=== PATIENT | male | born 1950 | race Caucasian/White ===

== ENCOUNTER 2024-04-15 16:22 | Inpatient (IN) | payer MEDICARE ==
--- NOTE | 2024-04-15 17:16 | ED ---
General Adult HPI - General Chief complaint: Dizziness Stated complaint: Near Syncope Time Seen by Provider: 04/15/24 16:37 Source: patient, EMS, RN notes reviewed Mode of arrival: EMS Limitations: no limitations - History of Present Illness Initial comments: Patient is a 73-year-old male presenting to the emergency department with concerns with dizziness. Patient was riding his bike for around a half an hour. Patient suddenly felt lightheaded and dizzy. Patient did have palpitations. Patient got off his bike. Patient did not fall. No injury. Patient feels better at this time and has no complaints. No chest pain. No dyspnea. - Related Data Home Medications Medication Instructions Recorded Confirmed Citalopram Hydrobromide [CeleXA] 20 mg PO DAILY 04/15/24 04/15/24 Rosuvastatin [Crestor] 20 mg PO DAILY 04/15/24 04/15/24 Tamsulosin [Flomax] 0.8 mg PO DAILY 04/15/24 04/15/24 amLODIPine [Norvasc] 5 mg PO DAILY 04/15/24 04/15/24 lisinopriL [Zestril] 20 mg PO DAILY 04/15/24 04/15/24 Allergies Allergy/AdvReac Type Severity Reaction Status Date / Time No Known Allergies Allergy Verified 04/15/24 19:05 Review of Systems ROS Statement: Those systems with pertinent positive or pertinent negative responses have been documented in the HPI. ROS Other: All systems not noted in ROS Statement are negative. Constitutional: Denies: fever Eyes: Denies: eye pain ENT: Denies: ear pain Respiratory: Denies: cough, dyspnea Cardiovascular: Reports: as per HPI, palpitations. Denies: chest pain Endocrine: Denies: fatigue Gastrointestinal: Denies: abdominal pain Musculoskeletal: Denies: back pain Neurological: Denies: headache, weakness Past Medical History Past Medical History: Hypertension Additional Past Medical History / Comment(s): high cholesterol History of Any Multi-Drug Resistant Organisms: None Reported Past Surgical History: Appendectomy Past Psychological History: No Psychological Hx Reported Smoking Status: Never smoker Past Alcohol Use History: None Reported Past Drug Use History: None Reported General Exam Limitations: no limitations General appearance: alert, in no apparent distress Head exam: Present: normocephalic Eye exam: Present: normal appearance, PERRL, EOMI. Absent: nystagmus ENT exam: Present: normal oropharynx Neck exam: Present: normal inspection Respiratory exam: Present: normal lung sounds bilaterally Cardiovascular Exam: Present: tachycardia Expanded Peripheral pulses: 2+: Radial (R), Radial (L) GI/Abdominal exam: Present: soft. Absent: tenderness Extremities exam: Present: normal inspection. Absent: pedal edema, calf tenderness Neurological exam: Present: alert, oriented X3, CN II-XII intact. Absent: motor sensory deficit Expanded Neurological exam: Present: protecting the airway Patient oriented to: Present: person, place, time Cranial nerves: EOM's Intact: Normal Sensory exam: Upper Extremity Light Touch: Normal, Lower Extremity Light Touch: Normal Motor strength exam: RUE: 5, LUE: 5, RLE: 5, LLE: 5 Eye Response: (4) open spontaneously Motor Response: (6) obeys commands Verbal Response: (5) oriented Psychiatric exam: Present: normal affect, normal mood Skin exam: Present: normal color Course Vital Signs 04/15/24 04/15/24 04/15/24 16:40 17:16 18:30 Temperature 98.1 F Pulse Rate 133 H 123 H Pulse Rate [ 115 H Health Management Consultant ] Respiratory 20 18 Rate Blood Pressure 102/67 115/89 O2 Sat by Pulse 94 L 96 Oximetry EKG Findings - EKG Results: EKG: interpreted by ERMD (Left axis. Narrow complex tachycardia. Poor R wave progression.), sinus rhythm, normal ST/T EKG shows: tachycardia Medical Decision Making - Medical Decision Making EKG #2 also interpreted by myself shows narrow complex tachycardia with a rate of 122. Left axis. Poor R wave progression. No acute ST change. Was pt. sent in by a medical professional or institution (, PA, BRIM GREASER OPERATOR, urgent care, hospital, or half-way...) When possible be specific @ -No Did you speak to anyone other than the patient for history (EMS, parent, family, police, friend...)? What history was obtained from this source @ -No Did you review nursing and triage notes (agree or disagree)? Why? @ -I reviewed and agree with nursing and triage notes Were old charts reviewed (outside hosp., previous admission, EMS record, old EK G, old radiological studies, urgent care reports/EKG's, half-way records)? Report findings @ -Prior labs not available Differential Diagnosis (chest pain, altered mental status, abdominal pain women, abdominal pain men, vaginal bleeding, weakness, fever, dyspnea, syncope, headache, dizziness, GI bleed, back pain, seizure, CVA, palpatations, mental health, musculoskeletal)? @ -[facility] differential differential Dizziness: Benign paroxysmal positional Vertigo, Meniere's disease, otitis media, acoustic neuroma, vertebrobasilar insufficiency, cerebellar stroke, encephalitis, hypovolemic, arrhythmia, coronary artery syndrome, anemia, this is not meant to be an all-inclusive list EKG interpreted by me (3pts min.). @ -As above X-rays interpreted by me (1pt min.). @ -Chest x-ray does not reveal acute abnormality CT interpreted by me (1pt min.). @ -No evidence of pulmonary embolism. There is concern for esophageal changes as well as infrarenal abdominal aortic aneurysm with thrombus U/S interpreted by me (1pt. min.). @ -None done What testing was considered but not performed or refused? (CT, X-rays, U/S, labs)? Why? @ -Scan of the abdomen however patient already received intravenous contrast What meds were considered but not given or refused? Why? @ -None Did you discuss the management of the patient with other professionals (professionals i.e. , PA, BRIM GREASER OPERATOR, lab, RT, psych nurse, health social work professor, admiralty lawyer, teacher, intelligence officer basic, case making machine operator)? Give summary @ -Case discussed with Dr. Yarbrough who will admit his patient. Case also discussed with Dr. Woods who will consult with vascular. Was smoking cessation discussed for >3mins.? @ -No Was critical care preformed (if so, how long)? @ -No Were there social determinants of health that impacted care today? How? (Homelessness, low income, unemployed, alcoholism, drug addiction, transportation, low edu. Level, literacy, decrease access to med. care, senior living, rehab)? @ -No Was there de-escalation of care discussed even if they declined (Discuss DNR or withdrawal of care, Hospice)? DNR status @ -No What co-morbidities impacted this encounter? (DM, HTN, Smoking, COPD, CAD, Cancer, CVA, ARF, Chemo, Hep., AIDS, mental health diagnosis, sleep apnea, morbid obesity)? @ -None Was patient admitted / discharged? Hospital course, mention meds given and route, prescriptions, significant lab abnormalities, going to OR and other pertinent info. @ -Patient presents with dizziness and tachycardia. CT scan ordered. Patient did develop nausea and emesis in the emergency department, treated with medication. Patient reevaluated and updated. Patient will be admitted with consults, admission orders written. Pedal pulses 2/4 bilateral Undiagnosed new problem with uncertain prognosis? @ -No Drug Therapy requiring intensive monitoring for toxicity (Heparin, Nitro, Insulin, Cardizem)? @ -No Were any procedures done? @ -No Diagnosis/symptom? @ -Dizziness, tachycardia, esophagitis, abdominal aortic aneurysm Acute, or Chronic, or Acute on Chronic? @ -Acute, acute acute, acute Uncomplicated (without systemic symptoms) or Complicated (systemic symptoms)? @ -Default Side effects of treatment? @ -No Exacerbation, Progression, or Severe Exacerbation? @ -No Poses a threat to life or bodily function? How? (Chest pain, [place], [place], pneumonia, PE, COPD, DKA, ARF, appy, cholecystitis, CVA, Diverticulitis, Homicidal, Nola cidal, threat to staff... and all critical care pts) @ -No - Lab Data Result diagrams: 04/15/24 17:13 04/15/24 18:00 Lab Results 04/15/24 04/15/24 04/15/24 Range/Units 17:13 17:13 17:19 WBC 7.4 (3.8-10.6) k/uL RBC 4.75 (4.30-5.90) m/uL Hgb 14.3 (13.0-17.5) gm/dL Hct 43.5 (39.0-53.0) % MCV 91.4 (80.0-100.0) fL MCH 30.1 (25.0-35.0) pg MCHC 32.9 (31.0-37.0) g/dL RDW 13.7 (11.5-15.5) % Plt Count 247 (150-450) k/uL MPV 8.9 Neutrophils % 72 % Lymphocytes % 16 % Monocytes % 7 % Eosinophils % 2 % Basophils % 1 % Neutrophils # 5.3 (1.3-7.7) k/uL Lymphocytes # 1.2 (1.0-4.8) k/uL Monocytes # 0.5 (0-1.0) k/uL Eosinophils # 0.2 (0-0.7) k/uL Basophils # 0.1 (0-0.2) k/uL PT (10.0-12.5) sec INR (<1.2) APTT (22.0-30.0) sec D-Dimer (<0.60) mg/L FEU Sodium 134 L (137-145) mmol/L Potassium (3.5-5.1) mmol/L Chloride (98-107) mmol/L Carbon Dioxide (22-30) mmol/L Anion Gap mmol/L BUN (9-20) mg/dL Creatinine (0.66-1.25) mg/dL Est GFR (CKD-EPI)AfAm (>60 ml/min/1.73 sqM) Est GFR (CKD-EPI)NonAf (>60 ml/min/1.73 sqM) Glucose (74-99) mg/dL POC Glucose (mg/dL) 124 H (70-110) mg/dL POC Glu Resident Care Provider ID Vagts, Suzin Calcium (8.4-10.2) mg/dL Magnesium (1.6-2.3) mg/dL Total Bilirubin (0.2-1.3) mg/dL AST (17-59) U/L ALT (4-49) U/L Alkaline Phosphatase (38-126) U/L Troponin I (0.000-0.034) ng/mL Total Protein (6.3-8.2) g/dL Albumin (3.5-5.0) g/dL TSH 3.360 (0.465-4.680) mIU/L Free T4 0.89 (0.78-2.19) ng/dL 04/15/24 04/15/24 04/15/24 Range/Units 18:00 18:00 18:30 WBC (3.8-10.6) k/uL RBC (4.30-5.90) m/uL Hgb (13.0-17.5) gm/dL Hct (39.0-53.0) % MCV (80.0-100.0) fL MCH (25.0-35.0) pg MCHC (31.0-37.0) g/dL RDW (11.5-15.5) % Plt Count (150-450) k/uL MPV Neutrophils % % Lymphocytes % % Monocytes % % Eosinophils % % Basophils % % Neutrophils # (1.3-7.7) k/uL Lymphocytes # (1.0-4.8) k/uL Monocytes # (0-1.0) k/uL Eosinophils # (0-0.7) k/uL Basophils # (0-0.2) k/uL PT 10.4 (10.0-12.5) sec INR 0.9 (<1.2) APTT 22.0 (22.0-30.0) sec D-Dimer 3.68 H (<0.60) mg/L FEU Sodium 140 (137-145) mmol/L Potassium 4.7 (3.5-5.1) mmol/L Chloride 107 (98-107) mmol/L Carbon Dioxide 24 (22-30) mmol/L Anion Gap 9 mmol/L BUN 29 H (9-20) mg/dL Creatinine 1.41 H (0.66-1.25) mg/dL Est GFR (CKD-EPI)AfAm 57 (>60 ml/min/1.73 sqM) Est GFR (CKD-EPI)NonAf 50 (>60 ml/min/1.73 sqM) Glucose 113 H (74-99) mg/dL POC Glucose (mg/dL) (70-110) mg/dL POC Glu Resident Care Provider ID Calcium 10.0 (8.4-10.2) mg/dL Magnesium 2.0 (1.6-2.3) mg/dL Total Bilirubin 0.8 (0.2-1.3) mg/dL AST 30 (17-59) U/L ALT 44 (4-49) U/L Alkaline Phosphatase 89 (38-126) U/L Troponin I <0.012 (0.000-0.034) ng/mL Total Protein 7.3 (6.3-8.2) g/dL Albumin 4.4 (3.5-5.0) g/dL TSH 2.600 (0.465-4.680) mIU/L Free T4 0.99 (0.78-2.19) ng/dL Disposition Clinical Impression: Dizziness, Tachycardia, Esophagitis, Abdominal aortic aneurysm Disposition: ADMITTED IP TO THIS HOSP Is patient prescribed a controlled substance at d/c from ED?: No Referrals: Clay Yarbrough MD [Primary Care Provider] - 1-2 days Time of Disposition: 20:26
[2024-04-15 17:20] LABS: Glucose,Whole Blood 124 mg/dL (70-110)
[2024-04-15 17:29] LABS: Basophils # (A) 0.1 k/uL (0-0.2); Basophils % (A) 1 %; Eosinophils # (A) 0.2 k/uL (0-0.7); Eosinophils % (A) 2 %; HCT 43.5 % (39.0-53.0); HGB 14.3 gm/dL (13.0-17.5); Lymphocytes # (A) 1.2 k/uL (1.0-4.8); Lymphocytes % (A) 16 %; MCH 30.1 pg (25.0-35.0); MCHC 32.9 g/dL (31.0-37.0); MCV 91.4 fL (80.0-100.0); Mean Platelet Volume 8.9; Monocytes # (A) 0.5 k/uL (0-1.0); Monocytes % (A) 7 %; Neutrophils # (A) 5.3 k/uL (1.3-7.7); Neutrophils % (A) 72 %; Platelet Count 247 k/uL (150-450); RBC 4.75 m/uL (4.30-5.90); RDW 13.7 % (11.5-15.5); WBC 7.4 k/uL (3.8-10.6)
[2024-04-15 17:44] LABS: Sodium 134 mmol/L (137-145)
[2024-04-15 18:02] LABS: T4, Free (Free Thyroxine) 0.89 ng/dL (0.78-2.19)
--- NOTE | 2024-04-15 18:40 | XR ---
EXAMINATION TYPE: XR chest 2V DATE OF EXAM: 04/15/2024 COMPARISON: None INDICATION: Dysrhythmia nausea and dizziness TECHNIQUE: Frontal and lateral views of the chest are obtained. FINDINGS: The heart size is normal. The pulmonary vasculature is normal. The lungs are clear. There is mild hyperinflation. This could be related to inspiratory effort or CO PD. IMPRESSION: 1. No acute pulmonary process. 2. Hyperinflation which can be related to inspiratory effort or COPD.
[2024-04-15 18:48] LABS: Sodium 140 mmol/L (137-145)
[2024-04-15 18:49] LABS: ALT 44 U/L (4-49); AST 30 U/L (17-59); African American GFR (CKD) 57 (>60 ml/min/1.73 sqM); Albumin 4.4 g/dL (3.5-5.0); Alkaline Phosphatase 89 U/L (38-126); Anion Gap 9 mmol/L; Blood Urea Nitrogen 29 mg/dL (9-20); Carbon Dioxide 24 mmol/L (22-30); Chloride 107 mmol/L (98-107); Glucose 113 mg/dL (74-99); Non-African American GFR(CKD) 50 (>60 ml/min/1.73 sqM); Potassium 4.7 mmol/L (3.5-5.1); Total Bilirubin 0.8 mg/dL (0.2-1.3); Total Protein 7.3 g/dL (6.3-8.2)
[2024-04-15 18:57] LABS: INR 0.9 (<1.2); Prothrombin Time 10.4 sec (10.0-12.5)
[2024-04-15 19:06] LABS: T4, Free (Free Thyroxine) 0.99 ng/dL (0.78-2.19)
[2024-04-15] MEDS: ONDANSETRON 4 MG/2 ML VIAL IVP STA (19:19)
--- NOTE | 2024-04-15 20:04 | CT ---
EXAMINATION TYPE: CT angio chest CT DLP: 452.3 mGycm, Automated exposure control for dose reduction was used. DATE OF EXAM: 04/15/2024 7:45 PM COMPARISON: Chest radiograph from same day. CLINICAL INDICATION: Male, 73 years old with history of pe protocol; chest pain, syncope TECHNIQUE/CONTRAST: CTA scan of the thorax is performed with IV Contrast, patient injected with 80cc mL of Isovue 370, ME P images are created and reviewed these are created on a separate workstation.. FINDINGS: Pulmonary Artery: There is no evidence for a filling defect within the pulmonary vasculature to sugge st acute pulmonary embolism. The pulmonary artery is of normal size. Lungs/Pleura: No evidence of focal consolidation, pleural effusion or pneumothorax. Airway: Large airways are patent. Heart: Heart is within normal limits for size. Vasculature: No evidence of aortic aneurysm. Mediastinum: No gross evidence of adenopathy. Moderate right hernia there is circumferential thickeni ng of the esophagus with multiple lymph nodes identified.r example includes series 411 image 42 measu ring 10 mm and image 99 measuring 12 12 mm. Musculoskeletal: No acute osseous abnormalities Soft Tissues/lymph nodes: Subcentimeter left thyroid nodule.e Lower neck: No significant findings. Upper Abdomen: Bilateral renal cysts. Nonobstructing right renal calculi measuring up to 5 mm. Infrarenal abdominal aortic aneurysm with mural thrombus measuring 5.8 cm. This is partially visualiz ed: Left adrenal nodule which is indeterminate measuring 20 mm. Right adrenal nodule which is indetermina te measuring 11 mm. IMPRESSION: 1. No evidence of pulmonary embolism. 2. Moderate hiatal hernia with mild wall thickening of the esophagus. Multiple paraesophageal lymph n odes are present. Correlate for esophagitis. Underlying neoplastic process not excluded. Further work up recommended. 3. Partially visualized abdominal aortic aneurysm with mural thrombus measuring up to 5.8 cm. Further evaluation of the abdomen with angiography recommended along with vasculature surgery consultation. 4. Indeterminate bilateral adrenal nodules.
[2024-04-15] MEDS ORDERED: NALOXONE 0.4 MG/ML 1 ML VIAL IV PRN (20:26)
[2024-04-15] MEDS ORDERED: ONDANSETRON 4 MG/2 ML VIAL IVP PRN (20:26)
--- NOTE | 2024-04-15 21:39 | US ---
EXAMINATION TYPE: US duplex aorta DATE OF EXAM: 04/15/2024 COMPARISON: CT today CLINICAL INDICATION: Male, 73 years old with history of aaa; AAA seen on CT TECHNIQUE: Multiple sonographic images of the abdominal aorta are obtained. FINDINGS: EXAM MEASUREMENTS: Abdominal Aorta: Proximal: 2.8 x 2.5cm Mid: 6.6 x 7.0cm Distal: 1.5 x 1.5cm Bifurcation: Right Iliac: Obscured by overlying bowel gas Left Iliac: Obscured by overlying bowel gas [employer] INSTALLER NOTES: Limited due to patient body habitus and overlying gas. There is a 6.6 x 7.0cm AAA seen within the mid portion of the Aorta. The iliac arteries are obscured by gas. IMPRESSION: Infrarenal abdominal aortic aneurysm measuring up to 7.0 cm as seen on CT.
[2024-04-15] MEDS: ACETAMINOPHEN TAB 500 MG TAB PO STA (22:36)
[2024-04-15] MEDS: PANTOPRAZOLE 40 MG/10 ML VIAL IV SCH (22:37)
[2024-04-15] MEDS: SODIUM CHLORIDE 0.9% 1,000 ML IV SCH (22:39)
[2024-04-15] MEDS: SODIUM CHLORIDE 0.9% 1,000 ML IV STA (22:41)
[2024-04-16 05:22] LABS: Basophils # (A) 0.1 k/uL (0-0.2); Basophils % (A) 1 %; Eosinophils # (A) 0.1 k/uL (0-0.7); Eosinophils % (A) 1 %; HGB 14.6 gm/dL (13.0-17.5); Lymphocytes # (A) 1.6 k/uL (1.0-4.8); Lymphocytes % (A) 21 %; MCH 30.7 pg (25.0-35.0); MCHC 33.1 g/dL (31.0-37.0); MCV 92.7 fL (80.0-100.0); Mean Platelet Volume 7.9; Monocytes # (A) 0.6 k/uL (0-1.0); Monocytes % (A) 8 %; Neutrophils # (A) 5.3 k/uL (1.3-7.7); Neutrophils % (A) 69 %; Platelet Count 193 k/uL (150-450); RBC 4.75 m/uL (4.30-5.90); WBC 7.7 k/uL (3.8-10.6)
[2024-04-16 05:45] LABS: ALT 37 U/L (4-49); AST 22 U/L (17-59); African American GFR (CKD) 64 (>60 ml/min/1.73 sqM); Albumin 3.6 g/dL (3.5-5.0); Alkaline Phosphatase 79 U/L (38-126); Anion Gap 8 mmol/L; Blood Urea Nitrogen 25 mg/dL (9-20); Calcium 8.9 mg/dL (8.4-10.2); Carbon Dioxide 25 mmol/L (22-30); Chloride 109 mmol/L (98-107); Glucose 104 mg/dL (74-99); Non-African American GFR(CKD) 56 (>60 ml/min/1.73 sqM); Sodium 142 mmol/L (137-145); Total Bilirubin 0.7 mg/dL (0.2-1.3); Total Protein 6.1 g/dL (6.3-8.2)
[2024-04-16] MEDS: lisinopriL 20 MG TAB PO SCH (08:11)
[2024-04-16] MEDS: CITALOPRAM HYDROBROMIDE 20 MG TAB PO SCH (08:11)
[2024-04-16] MEDS: ATORVASTATIN 40 MG TAB PO SCH (08:11)
[2024-04-16] MEDS: TAMSULOSIN 0.4 MG CAP.ER.24H PO SCH (08:11)
[2024-04-16] MEDS: amLODIPine 5 MG TAB PO SCH (08:11)
--- NOTE | 2024-04-16 08:53 | P.HPIM ---
History of Present Illness H&P Date: 04/16/24 This is a 73-year-old male who presented to the emergency department with complaints of dizziness. Patient had been riding his bike and felt lightheaded and dizzy, so he sat down and then decided to present to the emergency department for evaluation. Patient had some tachycardia in the ER. Abdominal ultrasound found an adominal aortic aneurysm measuring 7cm. Chest CTA showed esophagitis. GI and vascular surgeon have been consulted. Patient is seen this morning laying on stretcher in ER. He reports he is feeling well today. Further medical history as noted below. Review of Systems Constitutional: Denies chills, Denies fever Cardiovascular: Denies chest pain, Denies dyspnea on exertion Respiratory: Denies congestion, Denies cough, Denies dyspnea Gastrointestinal: Reports nausea, Reports vomiting Neurological: Reports vertigo Past Medical History Past Medical History: Hypertension Additional Past Medical History / Comment(s): high cholesterol History of Any Multi-Drug Resistant Organisms: None Reported Past Surgical History: Appendectomy Past Psychological History: No Psychological Hx Reported Smoking Status: Never smoker Past Alcohol Use History: None Reported Past Drug Use History: None Reported Medications and Allergies Home Medications Medication Instructions Recorded Confirmed Type Citalopram Hydrobromide [CeleXA] 20 mg PO DAILY 04/15/24 04/15/24 History Rosuvastatin [Crestor] 20 mg PO DAILY 04/15/24 04/15/24 History Tamsulosin [Flomax] 0.8 mg PO DAILY 04/15/24 04/15/24 History amLODIPine [Norvasc] 5 mg PO DAILY 04/15/24 04/15/24 History lisinopriL [Zestril] 20 mg PO DAILY 04/15/24 04/15/24 History Allergies Allergy/AdvReac Type Severity Reaction Status Date / Time No Known Allergies Allergy Verified 04/15/24 19:05 Physical Exam Vitals: Vital Signs Temp Pulse Pulse Resp BP Pulse Ox 04/16/24 04:30 82 18 140/96 97 04/16/24 02:40 88 18 139/93 98 04/15/24 22:35 131 H 18 146/105 94 L 04/15/24 18:30 123 H 18 115/89 96 04/15/24 17:16 115 H 04/15/24 16:40 98.1 F 133 H 20 102/67 94 L Intake and Output 04/15/24 04/16/24 04/16/24 22:59 06:59 14:59 Other: Weight 81.647 kg - Constitutional General appearance: cooperative, no acute distress - EENT Eyes: PERRLA - Neck Neck: no lymphadenopathy, normal ROM, no rigidity - Respiratory Respiratory: bilateral: CTA - Cardiovascular Rhythm: regular Heart sounds: normal: S1, S2 - Gastrointestinal General gastrointestinal: soft, no tenderness - Integumentary Integumentary: normal, normal turgor - Psychiatric Psychiatric: A&O x's 3 Results CBC & Chem 7: 04/16/24 04:47 04/16/24 04:47 Labs: Abnormal Lab Results - Last 24 Hours (Table) 04/15/24 04/15/24 04/15/24 Range/Units 17:13 17:19 18:00 D-Dimer (<0.60) mg/L FEU Sodium 134 L (137-145) mmol/L Chloride (98-107) mmol/L BUN 29 H (9-20) mg/dL Creatinine 1.41 H (0.66-1.25) mg/dL Glucose 113 H (74-99) mg/dL POC Glucose (mg/dL) 124 H (70-110) mg/dL Total Protein (6.3-8.2) g/dL 04/15/24 04/16/24 Range/Units 18:30 04:47 D-Dimer 3.68 H (<0.60) mg/L FEU Sodium (137-145) mmol/L Chloride 109 H (98-107) mmol/L BUN 25 H (9-20) mg/dL Creatinine 1.28 H (0.66-1.25) mg/dL Glucose 104 H (74-99) mg/dL POC Glucose (mg/dL) (70-110) mg/dL Total Protein 6.1 L (6.3-8.2) g/dL Assessment and Plan (1) Hypertension Current Visit: Yes Status: Acute Code(s): I10 - ESSENTIAL (PRIMARY) HYPERTENSION SNOMED Code(s): 17153276 (2) Abdominal aortic aneurysm Current Visit: Yes Status: Acute Code(s): I71.40 - ABDOMINAL AORTIC ANEURYSM , WITHOUT RUPTURE, UNSPECIFIED SNOMED Code(s): 495375209 (3) Dizziness Current Visit: Yes Status: Acute Code(s): R42 - DIZZINESS AND GIDDINESS SNOMED Code(s): 802017962 (4) Esophagitis Current Visit: Yes Status: Acute Code(s): K20.90 - ESOPHAGITIS, UNSPECIFIED WITHOUT BLEEDING SNOMED Code(s): 18963988 (5) Tachycardia Current Visit: Yes Status: Acute Code(s): R00.0 - TACHYCARDIA, UNSPECIFIED SNOMED Code(s): 4818669 Plan: Continue home medications. Appreciate consultants. Check CBC and CMP in the morning Patient seen and evaluated by nurse practitioner, physician in agreement with plan.
--- NOTE | 2024-04-16 10:53 | P.GSCN ---
History of Present Illness Consult date: 04/16/24 Reason for Consult: AAA Requesting physician: Jeffrey Del Cid History of present illness: This a pleasant 73-year-old male with a past medical history of hypertension, hyperlipidemia department by EMS yesterday. Apparently he had been out riding his bike he became very nauseous and dizzy and decided to sit down on the grass. A bystander had seen him and said he looked very pale he tried to stand but again was really dizzy and had to sit back down. EMS was called and he was brought into the emergency department. He had labs drawn that showed an elevated D-dimer. He therefore had a CT angiogram of the chest which was negative for pulmonary embolism but reported a 5.8 cm abdominal aortic aneurysm. Vascular surgery was consulted for abdominal aortic aneurysm. Patient denies any abdominal pain, no chest pain, no back pain or pain radiating from stomach to back. Denies any nausea or vomiting at this time. Denies any history of known AAA disease. Currently denies any shortness of breath, chest pain, no fe vers or chills. Review of Systems A 14 point review systems was completed all pertinent positives and negatives as stated in the HPI. Past Medical History Past Medical History: Hypertension Additional Past Medical History / Comment(s): high cholesterol History of Any Multi-Drug Resistant Organisms: None Reported Past Surgical History: Appendectomy Past Psychological History: No Psychological Hx Reported Smoking Status: Never smoker Past Alcohol Use History: None Reported Past Drug Use History: None Reported Medications and Allergies Home Medications Medication Instructions Recorded Confirmed Type Citalopram Hydrobromide [CeleXA] 20 mg PO DAILY 04/15/24 04/15/24 History Rosuvastatin [Crestor] 20 mg PO DAILY 04/15/24 04/15/24 History Tamsulosin [Flomax] 0.8 mg PO DAILY 04/15/24 04/15/24 History amLODIPine [Norvasc] 5 mg PO DAILY 04/15/24 04/15/24 History lisinopriL [Zestril] 20 mg PO DAILY 04/15/24 04/15/24 History Allergies Allergy/AdvReac Type Severity Reaction Status Date / Time No Known Allergies Allergy Verified 04/15/24 19:05 Surgical - Exam Vital Signs Temp Pulse Resp BP Pulse Ox 98.1 F 133 H 20 102/67 94 L 04/15/24 16:40 04/15/24 16:40 04/15/24 16:40 04/15/24 16:40 04/15/24 16:40 General appearance: The patient is alert, oriented, appears in no acute distress. HET: Head is normocephalic and atraumatic. Pupils are equal and reactive. Neck: Supple. Heart: Regular. Lungs: Equal expansion, normal respiratory effort. Abdomen: Soft, nontender, nondistended. Extremities: Normal skin color and turgor. Palpable radial pulses. Palpable DP pulses. Neurological: No focal deficits. Strength and sensation are grossly intact. Results - Labs 04/16/24 04:47 04/16/24 04:47 Abnormal Lab Results - Last 24 Hours (Table) 04/15/24 04/15/24 04/15/24 Range/Units 17:13 17:19 18:00 D-Dimer (<0.60) mg/L FEU Sodium 134 L (137-145) mmol/L Chloride (98-107) mmol/L BUN 29 H (9-20) mg/dL Creatinine 1.41 H (0.66-1.25) mg/dL Glucose 113 H (74-99) mg/dL POC Glucose (mg/dL) 124 H (70-110) mg/dL Total Protein (6.3-8.2) g/dL 04/15/24 04/16/24 Range/Units 18:30 04:47 D-Dimer 3.68 H (<0.60) mg/L FEU Sodium (137-145) mmol/L Chloride 109 H (98-107) mmol/L BUN 25 H (9-20) mg/dL Creatinine 1.28 H (0.66-1.25) mg/dL Glucose 104 H (74-99) mg/dL POC Glucose (mg/dL) (70-110) mg/dL Total Protein 6.1 L (6.3-8.2) g/dL Diabetes panel 04/15/24 04/15/24 04/16/24 Range/Units 17:13 18:00 04:47 Sodium 134 L 140 142 (137-145) mmol/L Potassium 4.7 5.0 (3.5-5.1) mmol/L Chloride 107 109 H (98-107) mmol/L Carbon Dioxide 24 25 (22-30) mmol/L BUN 29 H 25 H (9-20) mg/dL Creatinine 1.41 H 1.28 H (0.66-1.25) mg/dL Glucose 113 H 104 H (74-99) mg/dL Calcium 10.0 8.9 (8.4-10.2) mg/dL AST 30 22 (17-59) U/L ALT 44 37 (4-49) U/L Alkaline Phosphatase 89 79 (38-126) U/L Total Protein 7.3 6.1 L (6.3-8.2) g/dL Albumin 4.4 3.6 (3.5-5.0) g/dL Thyroid panel 04/15/24 04/15/24 Range/Units 17:13 18:00 TSH 3.360 2.600 (0.465-4.680) mIU/L Calcium panel 04/15/24 04/16/24 Range/Units 18:00 04:47 Calcium 10.0 8.9 (8.4-10.2) mg/dL Albumin 4.4 3.6 (3.5-5.0) g/dL Pituitary panel 04/15/24 04/15/24 04/16/24 Range/Units 17:13 18:00 04:47 Sodium 134 L 140 142 (137-145) mmol/L Potassium 4.7 5.0 (3.5-5.1) mmol/L Chloride 107 109 H (98-107) mmol/L Carbon Dioxide 24 25 (22-30) mmol/L BUN 29 H 25 H (9-20) mg/dL Creatinine 1.41 H 1.28 H (0.66-1.25) mg/dL Glucose 113 H 104 H (74-99) mg/dL Calcium 10.0 8.9 (8.4-10.2) mg/dL TSH 3.360 2.600 (0.465-4.680) mIU/L Adrenal panel 04/15/24 04/15/24 04/16/24 Range/Units 17:13 18:00 04:47 Sodium 134 L 140 142 (137-145) mmol/L Potassium 4.7 5.0 (3.5-5.1) mmol/L Chloride 107 109 H (98-107) mmol/L Carbon Dioxide 24 25 (22-30) mmol/L BUN 29 H 25 H (9-20) mg/dL Creatinine 1.41 H 1.28 H (0.66-1.25) mg/dL Glucose 113 H 104 H (74-99) mg/dL Calcium 10.0 8.9 (8.4-10.2) mg/dL Total Bilirubin 0.8 0.7 (0.2-1.3) mg/dL AST 30 22 (17-59) U/L ALT 44 37 (4-49) U/L Alkaline Phosphatase 89 79 (38-126) U/L Total Protein 7.3 6.1 L (6.3-8.2) g/dL Albumin 4.4 3.6 (3.5-5.0) g/dL - Imaging Comments: Chest CTA reports no evidence of pulmonary embolism. Moderate hiatal hernia with mild wall thickening of the esophagus. Multiple paraesophageal lymph nodes are present. Correlate for esophagitis. Underlying neoplastic process not excluded. Further workup recommended. Partially visualized abdominal aortic aneurysm with mural thrombus measuring up to 5.8 cm. Further evaluation of the abdomen with angiography recommended along with vasculatures surgeon consultation. Indeterminate bilateral adrenal nodules. Aorto iliac ultrasound reports infrarenal abdominal aortic aneurysm measuring up to 7.0 cm as seen on CT. Assessment and Plan Assessment: 1. Asymptomatic abdominal aortic aneurysm measuring 5.8 cm chest CTA 2. Syncope 3. Hypertension 4. Hyperlipidemia 5. Former smoker 6. Esophageal thickening seen on CT scan Plan: 1. Continue symptomatic supportive care 2. Optimize blood pressures per primary medical team 3. Will need to order CT a abdomen pelvis when kidney function improves 4. Further recommendations forthcoming per vascular surgeon based on clinical course no indication for any emergent intervention. 5. No contraindications from a vascular standpoint to proceed with upper endoscopy Thank you for this consultation, we will continue to follow. The impression and plan of care has been dictated as directed. Dr. Lopez I performed a history and examination of this patient, discussed the same with the dictator. I agree with the dictator's note ,documented as a scribe. Any additional findings or plans will be noted.
--- NOTE | 2024-04-16 13:36 | P.CONS ---
History of Present Illness - Reason for Consult Consult date: 04/16/24 Esophagitis, see CT report Requesting physician: Jeffrey Del Cid - Chief Complaint Nausea, dizziness - History of Present Illness This a pleasant 73-year-old male with a past medical history of hypertension, hyperlipidemia department by EMS yesterday. Apparently he had been out riding his bike he became very nauseous and dizzy and decided to sit down on the grass. A bystander had seen him and said he looked very pale he tried to stand but again was really dizzy and had to sit back down. EMS was called and he was brought into the emergency department. He had labs drawn that showed an elevated D-dimer. He therefore had a CT angiogram of the chest which was negative for pulmonary embolism but reported a 5.8 cm abdominal aortic aneurysm and esophagitis with esophageal thickening and lymph nodes. Gastroenterology was consulted for abnormal CT showing esophagitis. Patient denies any abdominal pain, no chest pain, no back pain or pain radiating from stomach to back. Denies any nausea or vomiting at this time. He denies history of peptic ulcer disease or GERD. Denies any history of known AAA disease. Currently denies any shortness of breath, chest pain, no fevers or chills. Review of Systems REVIEW OF SYSTEMS: CARDIOPULMONARY: No chest pain or shortness of breath. Gastrointestinal: No abdominal pain. Dizziness with nausea, no vomiting.. No hematemesis, coffee-ground emesis. No rectal bleeding, or melena. GENITOURINARY: No dysuria or hematuria. MUSCULOSKELETAL: Reports normal range of motion., Joint pain. SKIN: No rashes. No jaundice. ENDOCRINE: No chills, fevers. No excessive weight gain or loss. No polydipsia or polyuria. PSYCHIATRIC: Unremarkable. NEUROLOGY: No change in mental status. Patient had dizziness, weakness. ENT: Vision unremarkable. CONSTITUTIONAL: No recent weight loss. No fever, chills, night sweats. Past Medical History Past Medical History: Hypertension Additional Past Medical History / Comment(s): high cholesterol History of Any Multi-Drug Resistant Organisms: None Reported Past Surgical History: Appendectomy Past Psychological History: No Psychological Hx Reported Smoking Status: Never smoker Past Alcohol Use History: None Reported Past Drug Use History: None Reported Medications and Allergies Home Medications Medication Instructions Recorded Confirmed Type Citalopram Hydrobromide [CeleXA] 20 mg PO DAILY 04/15/24 04/15/24 History Rosuvastatin [Crestor] 20 mg PO DAILY 04/15/24 04/15/24 History Tamsulosin [Flomax] 0.8 mg PO DAILY 04/15/24 04/15/24 History amLODIPine [Norvasc] 5 mg PO DAILY 04/15/24 04/15/24 History lisinopriL [Zestril] 20 mg PO DAILY 04/15/24 04/15/24 History Allergies Allergy/AdvReac Type Severity Reaction Status Date / Time No Known Allergies Allergy Verified 04/15/24 19:05 Physical Exam Vitals: Vital Signs Temp Pulse Pulse Resp BP Pulse Ox 04/16/24 04:30 82 18 140/96 97 04/16/24 02:40 88 18 139/93 98 04/15/24 22:35 131 H 18 146/105 94 L 04/15/24 18:30 123 H 18 115/89 96 04/15/24 17:16 115 H 04/15/24 16:40 98.1 F 133 H 20 102/67 94 L Intake and Output 04/15/24 04/16/24 04/16/24 22:59 06:59 14:59 Other: Weight 81.647 kg General appearance: The patient is alert, oriented, appears in no acute distress. HET: Head is normocephalic and atraumatic. Conjunctiva pink. Sclera anicteric. Neck: Supple without lymphadenopathy. Trachea midline. Heart: Regular. Lungs: Equal expansion, normal respiratory effort. Abdomen: Soft, nontender, nondistended. Skin: No rashes. No jaundice. Extremities: Normal skin color and turgor. No pedal edema. Neurological: No focal deficits. Alert and oriented x3. Results CBC & Chem 7: 04/16/24 04:47 04/16/24 04:47 Labs: Abnormal Lab Results - Last 24 Hours (Table) 04/15/24 04/15/24 04/15/24 Range/Units 17:13 17:19 18:00 D-Dimer (<0.60) mg/L FEU Sodium 134 L (137-145) mmol/L Chloride (98-107) mmol/L BUN 29 H (9-20) mg/dL Creatinine 1.41 H (0.66-1.25) mg/dL Glucose 113 H (74-99) mg/dL POC Glucose (mg/dL) 124 H (70-110) mg/dL Total Protein (6.3-8.2) g/dL 04/15/24 04/16/24 Range/Units 18:30 04:47 D-Dimer 3.68 H (<0.60) mg/L FEU Sodium (137-145) mmol/L Chloride 109 H (98-107) mmol/L BUN 25 H (9-20) mg/dL Creatinine 1.28 H (0.66-1.25) mg/dL Glucose 104 H (74-99) mg/dL POC Glucose (mg/dL) (70-110) mg/dL Total Protein 6.1 L (6.3-8.2) g/dL Comments: Chest CTA reports no evidence of pulmonary embolism. Moderate hiatal hernia with mild wall thickening of the esophagus. Multiple paraesophageal lymph nodes are present. Correlate for esophagitis. Underlying neoplastic process not excluded. Further workup recommended. Partially visualized abdominal aortic aneurysm with mural thrombus measuring up to 5.8 cm. Further evaluation of the abdomen with angiography recommended along with vasculatures surgeon consul tation. Indeterminate bilateral adrenal nodules. Aorto iliac ultrasound reports infrarenal abdominal aortic aneurysm measuring up to 7.0 cm as seen on CT. Assessment and Plan (1) Abnormal CT of the chest Narrative/Plan: 73-year-old male presenting for dizziness and nausea had elevated D-dimer therefore underwent CT a of the chest which is reporting moderate hiatal hernia with mild wall thickening of the esophagus with multiple paraesophageal lymph nodes correlate for esophagitis and consider underlying neoplasm. Patient with no prior history of GERD or peptic ulcer disease. Denies any epigastric or abdominal pain. Was also noted to have large abdominal aortic aneurysm which is being followed by vascular surgery however no urgent intervention recommended. Will plan for further endoscopic evaluation of abnormal CT for possible eso phagitis and noted paraesophageal lymph nodes. Current Visit: Yes Status: Acute Code(s): R93.89 - ABNORMAL FINDINGS ON DX IMAGING OF OTH BODY STRUCTURES SNOMED Code(s): 72556458232838019 (2) Hiatal hernia Current Visit: Yes Status: Acute Code(s): K44.9 - DIAPHRAGMATIC HERNIA WITHOUT OBSTRUCTION OR GANGRENE SNOMED Code(s): 21467721 (3) Abdominal aortic aneurysm Narrative/Plan: Vascular surgery following. Patient has no contraindications for proceeding with upper endoscopy per vascular surgery Current Visit: Yes Status: Acute Code(s): I71.40 - ABDOMINAL AORTIC ANEURYSM, WITHOUT RUPTURE, UNSPECIFIED SNOMED Code(s): 641627162 (4) Dizziness Current Visit: Yes Status: Acute Code(s): R42 - DIZZINESS AND GIDDINESS SNOMED Code(s): 253859695 (5) Hypertension Current Visit: Yes Status: Acute Code(s): I10 - ESSENTIAL (PRIMARY) HYPERTENSION SNOMED Code(s): 20871302 Plan: 1. Continue symptomatic and supportive care 2. Regular diet 3. N.p.o. after midnight 4. Protonix 40 mg daily for GI prophylaxis 5. N.p.o. after midnight 6. Plan for upper endoscopy tomorrow Thank you for this consultation, we will continue to follow. Dr. Nighat Olmstead I agree with the dictator's note, documented as a scribe by Marcelle Burrell.
[2024-04-16] MEDS: ACETAMINOPHEN TAB 325 MG TAB PO PRN (19:55)
[2024-04-17 08:30] LABS: HCT 43.5 % (39.0-53.0); HGB 13.8 gm/dL (13.0-17.5); MCH 29.9 pg (25.0-35.0); MCHC 31.7 g/dL (31.0-37.0); MCV 94.2 fL (80.0-100.0); Mean Platelet Volume 7.1; Platelet Count 195 k/uL (150-450); RBC 4.62 m/uL (4.30-5.90); RDW 13.6 % (11.5-15.5); WBC 5.7 k/uL (3.8-10.6)
[2024-04-17 08:44] LABS: ALT 30 U/L (4-49); AST 21 U/L (17-59); African American GFR (CKD) 75 (>60 ml/min/1.73 sqM); Albumin 3.5 g/dL (3.5-5.0); Alkaline Phosphatase 78 U/L (38-126); Anion Gap 4 mmol/L; Blood Urea Nitrogen 22 mg/dL (9-20); Calcium 9.1 mg/dL (8.4-10.2); Carbon Dioxide 26 mmol/L (22-30); Chloride 109 mmol/L (98-107); Glucose 98 mg/dL (74-99); Non-African American GFR(CKD) 65 (>60 ml/min/1.73 sqM); Potassium 4.2 mmol/L (3.5-5.1); Sodium 139 mmol/L (137-145); Total Bilirubin 0.7 mg/dL (0.2-1.3); Total Protein 6.1 g/dL (6.3-8.2)
--- NOTE | 2024-04-17 08:49 | P.PN ---
Subjective Principal diagnosis: Dizziness with abdominal aortic aneurysm Patient has no episodic dizziness or chest pain or shortness of breath. He is n.p.o. at this time in the morning awaiting surgery Objective - Vital Signs Vital signs: Vital Signs Temp 97.4 F L 04/17/24 07:53 Pulse 65 04/17/24 07:53 Resp 16 04/17/24 07:53 BP 146/82 04/17/24 07:53 Pulse Ox 96 04/17/24 07:53 FiO2 Intake & Output 04/16/24 04/17/24 04/17/24 18:59 06:59 18:59 Intake Total 118 1667 Balance 118 1667 Weight 81.647 kg 91.8 kg Intake: Intake, IV Titration 1430 Amount Sodium Chloride 0.9% 1, 1430 000 ml @ 130 mls/hr IV . Q7H42M [facility] Rx#:[id number] Oral 118 237 Other: # Voids 1 - Constitutional General appearance: Present: average body habitus, cooperative, no acute distress - EENT Eyes: Absent: abnormal pupil - Respiratory Respiratory: bilateral: diminished - Cardiovascular Rhythm: regular Heart sounds: normal: S1, S2 Abnormal Heart Sounds: Absent: S3 Gallop - Gastrointestinal General gastrointestinal: Present: soft. Absent: tenderness - Integumentary Integumentary: Absent: cellulitis - Labs CBC & Chem 7: 04/17/24 08:15 04/17/24 08:15 Labs: Abnormal Lab Results - Last 24 Hours (Table) 04/17/24 Range/Units 08:15 Chloride 109 H (98-107) mmol/L BUN 22 H (9-20) mg/dL Total Protein 6.1 L (6.3-8.2) g/dL Assessment and Plan (1) Abdominal aortic aneurysm Current Visit: Yes Status: Acute Code(s): I71.40 - ABDOMINAL AORTIC ANEURYSM, WITHOUT RUPTURE, UNSPECIFIED SNOMED Code(s): 446099099 (2) Dizziness Current Visit: Yes Status: Acute Code(s): R42 - DIZZINESS AND GIDDINESS SNOMED Code(s): 771874001 (3) Esophagitis Current Visit: Yes Status: Acute Code(s): K20.90 - ESOPHAGITIS, UNSPECIFIED WITHOUT BLEEDING SNOMED Code(s): 99746675 Plan: Await EGD Check CBC and CMP in AM. Anticipate discharge in next 24-48 hours to follow-up with outpatient treatment for abdominal aortic aneurysm.
[2024-04-17 11:23] VITALS: RESP 18
--- NOTE | 2024-04-17 12:28 | CT ---
EXAMINATION TYPE: CT angio abdomen pelvis CT DLP: 1332.9 mGycm, Automated exposure control for dose reduction was used. DATE OF EXAM: 04/17/2024 12:09 PM COMPARISON:Ultrasound aorta 04/15/2024, CT chest 04/15/2024 CLINICAL INDICATION:Male, 73 years old with history of AAA, evaluate AAA; AAA, evaluate AAA TECHNIQUE: Multiple thin slice sub-millimeter images were obtained through the abdomen and pelvis aft er administration of contrast. Noncontrast imaging of the abdomen and pelvis was performed before. Pa tient was given Isovue 370, 100 cc intravenously. 3-D reconstructed images and maximum intensity pro jection images were obtained of the arterial vasculature. FINDINGS: CTA Abdomen and pelvis: Mild to moderate atherosclerotic calcification of the aorta and its branches. Fusiform infrarenal abdominal aortic aneurysm measuring 6.5 x 6.2 cm with eccentric mural thrombus. No evidence for intramural hematoma or dissection. The origins of the superior mesenteric artery, tatianna al arteries, inferior mesenteric artery, and celiac axis are patent. Atherosclerotic plaquing is char ntified in the common iliac arteries. Ectasia of the distal right common femoral artery measuring up to 1.9 cm near the bifurcation. VISCERA: The liver, spleen, adrenal glands, kidneys, pancreas, and gallbladder are not optimally enha nced due the arterial phase utilized. LIVER: Subcentimeter nonenhancing hypodense focus within the right hepatic lobe near the dome which i s too small to characterize but likely represents a cyst. GALLBLADDER AND BILE DUCTS: Unremarkable. PANCREAS: Unremarkable. SPLEEN: Unremarkable. ADRENAL GLANDS: Right adrenal gland is unremarkable. Left adrenal gland 1.9 cm nodule with a Hounsfie ld 16 on noncontrast imaging. KIDNEYS AND URETERS: No evidence of hydronephrosis . Nonobstructive bilateral renal calculi with larg est in the right kidney measuring up to 5 mm. Largest in the left kidney measures up to 7 mm. Approxi mately 3 right renal calculi. Approximately 2 left renal calculi. Subcentimeter hyperdense left renal cyst measuring 9 mm. Likely proteinaceous/hemorrhagic cyst. Bilateral renal cysts identified with la rgest measuring a left renal sinus cysts measuring up to 6.7 cm. Cortical atrophy of the right kidney identified. PELVIS BLADDER: Unremarkable REPRODUCTIVE: Coarse calcifications of the prostate gland are identified. Bilateral hydroceles. ABDOMEN & PELVIS STOMACH AND BOWEL: Small hiatal hernia. Distal colonic diverticulosis. Redundant sigmoid colon. No ev idence of bowel obstruction. PERITONEUM: No evidence of pneumoperitoneum or free fluid. MUSCULOSKELETAL: No acute osseous abnormalities. Degenerative disc disease most pronounced at L5-S1. LYMPH NODES: No evidence for lymphadenopathy. SOFT TISSUE/ABDOMINAL WALL: Tiny fat filled umbilical hernia. IMPRESSION 1. Infrarenal fusiform abdominal aortic aneurysm measuring up to 6.5 cm with eccentric mural thrombu s. 2. Ectasia of the distal right common femoral artery near the bifurcation measuring up to 1.9 cm. 3. Colonic diverticulosis. 4. Nonobstructive bilateral renal calculi with bilateral renal cysts. Regions of cortical atrophy inv olving the right kidney from prior insult. 5. Indeterminate left adrenal gland 1.9 cm nodule. Probably benign. Consider 12 month follow-up adren al CT.
--- NOTE | 2024-04-17 12:41 | P.PN ---
Subjective Progress Note Date: 04/17/24 Principal diagnosis: AAA Seen and examined today as a follow-up. He still denies any abdominal pain, back pain, shortness of breath or chest pain. No further dizziness nausea or vomiting. He is scheduled for upper endoscopy this afternoon. Kidney function improved. Objective - Vital Signs Vital signs: Vital Signs Temp 97.4 F L 04/17/24 07:53 Pulse 65 04/17/24 07:53 Resp 16 04/17/24 07:53 BP 146/82 04/17/24 07:53 Pulse Ox 96 04/17/24 07:53 FiO2 Intake & Output 04/16/24 04/17/24 04/17/24 18:59 06:59 18:59 Intake Total 118 1667 Balance 118 1667 Weight 81.647 kg 91.8 kg Intake: Intake, IV Titration 1430 Amount Sodium Chloride 0.9% 1, 1430 000 ml @ 130 mls/hr IV . Q7H42M [facility] Rx#:[id number] Oral 118 237 Other: # Voids 1 - Exam General appearance: The patient is alert, oriented, appears in no acute distress. HET: Head is normocephalic and atraumatic. Pupils are equal and reactive. Neck: Supple. Heart: Regular. Lungs: Equal expansion, normal respiratory effort. Abdomen: Soft, nontender, nondistended. Extremities: Normal skin color and turgor. Palpable DP pulses. Neurological: No focal deficits. Strength and sensation are grossly intact. - Labs CBC & Chem 7: 04/17/24 08:15 04/17/24 08:15 Labs: Abnormal Lab Results - Last 24 Hours (Table) 04/17/24 Range/Units 08:15 Chloride 109 H (98-107) mmol/L BUN 22 H (9-20) mg/dL Total Protein 6.1 L (6.3-8.2) g/dL Assessment and Plan Assessment: 1. Asymptomatic abdominal aortic aneurysm measuring 6.5 cm 2. Syncope 3. Hypertension 4. Hyperlipidemia 5. Former smoker 6. Esophageal thickening seen on CT scan Plan: 1. Continue symptomatic supportive care 2. Optimize blood pressures per primary medical team 3. CT angiogram abdomen/pelvis ordered and reviewed. Will obtain disc. 4. Patient is scheduled for upper endoscopy today 5. Further recommendations forthcoming per vascular surgeon Thank you for this consultation, we will continue to follow. The impression and plan of care has been dictated as directed. Dr. Ambrose I performed a history and examination of this patient, discussed the same with the dictator. I agree with the dictator's note ,documented as a scribe. Any additional findings or plans will be noted.
[2024-04-17] MEDS ORDERED: LIDOCAINE 1% INJ 10MG/ML (20 ML MDV) ONE (13:05)
[2024-04-17] MEDS ORDERED: PROPOFOL 10 MG/ML 20 ML VIAL IV ONE (13:05)
[2024-04-17] MEDS: IV FLUID CONTINUATION 1,000 ML IV ONE (13:07)
--- NOTE | 2024-04-17 13:18 | P.PCN ---
Date of Procedure: 04/17/24 Procedure(s) Performed: BRIEF HISTORY: Patient is a 73-year-old, pleasant, white male scheduled for an upper endoscopy as a part evaluation of abnormal CAT scan that showed thickening of the distal esophagus. He denies any heartburn. He reports no dysphagia or odynophagia.. PROCEDURE PERFORMED: Esophagogastroduodenoscopy with biopsy. PREOPERATIVE DIAGNOSIS: Abnormal CAT scan revealing thickened distal esophagus. IV sedation per anesthesia. PROCEDURE: After informed consent was obtained, the patient was brought into the endoscopy unit. IV sedation was administered by Anesthesia under continuous monitoring. Initially the Olympus GIF-140 video endoscope was inserted into the mouth. Esophagus intubated without any difficulty. It was gradually advanced into the stomach and duodenum and carefully examined. The bulb had moderate to severe duodenitis and the second part of the duodenum appeared normal. The scope at this time was withdrawn to the stomach, adequately insufflated with air, and upon careful examination, mucosa of the antrum, had patchy areas of erythema consistent with gastritis and biopsies were done from this area. Body, cardia and the fundus appeared normal. The scope was then withdrawn into the esophagus. The GE junction was located at 38 cm from the incisors. There were linear erosions or ulcerations noted in the distal esophagus consistent with LA grade D reflux esophagitis. There was salmon-colored colon mucosa just proximal to the GE junction extending 1 cm proximally and biopsies were done from the distal esophagus rule out Medley's esophagus. The rest of the esophagus appeared normal. The patient tolerated the procedure well. IMPRESSION: 1. Linear erosions or ulcerations in the distal esophagus consistent with LA grade D reflux esophagitis. 2. Mild antral gastritis 3. Moderate size hiatal hernia 4. Moderate duodenitis. RECOMMENDATIONS: The findings of this examination were discussed with the patient as well as his family. He was advised to follow-up with the biopsy results. Start on Protonix 40 mg twice daily and follow antireflux measures..
--- NOTE | 2024-04-17 15:23 | CDI ---
Documentation Clarification Form Date: 04/17/2024 03:02:19 PM From: Latasha Grace RN,CCDS Phone: [phone] Admit Date: 04/15/2024 08:28:00 PM Patient Name: Scott Yu Visit Number: [id number] Discharge Date: ATTENTION: The Clinical Documentation Specialists (CDI) and [facility] Coding Staff appreciate your assistance in clarifying documentation. Please respond to the clarification below the line at the bottom and electronically sign. The CDI & [facility] Coding staff will review the response and follow-up if needed. Please note: Queries are made part of the Legal Health Record. If you have any questions, please contact the author of this message via ITS. Doctor/Provider: Clay Yarbrough Your patient has abnormal lab finding on admission. Based on this information and the findings below, is there an additional diagnosis that is clinically appropriate for this patient? Patient history/risk factors: Hypertension, high cholesterol Clinical Indicators: 73-year-old male presenting to the ED with concerns with dizziness. He reports he felt lightheaded and dizzy. Patient did have palpitations. KG shows: tachycardia rate of 122. Patient reports nausea, Report vomiting per H/P. 04/15 BUN 29 CR 41 GFR 50 9/10 BUN 25 CR .28 GFR 56 /11 BUN 22 CR 1.13 GFR 65 Treatment: Monitor CBC, CMP per orders Monitor (Renal function) Optimize blood pressure (per attending) Is there an additional diagnosis that is clinically appropriate for this patient? [ x ] Acute Kidney Injury [ ] Acute on Chronic Renal Failure (please stage) [ ] No additional diagnosis/Not clinically significant [ ] Unable to determine [ ] Other, please specify Reference: KDIGO LD Criteria An increase in serum creatinine by greater than or equal to 0.3 mg/dL within 48 hours; An increase in serum creatinine by greater than or equal to 1.5 times baseline, which is known or presumed to have occurred within the prior 7 days; A urine volume less than 0.5 ml/kg/h for 6 hours. When the baseline is unknown the lowest creatinine during admission assumed to be baseline (Template Last Revised: September 2022) MTDD
[2024-04-17] MEDS: PANTOPRAZOLE 40 MG TABLET PO SCH (18:03)
[2024-04-18 08:39] LABS: HCT 41.5 % (39.0-53.0); HGB 13.2 gm/dL (13.0-17.5); MCH 29.6 pg (25.0-35.0); MCHC 31.8 g/dL (31.0-37.0); MCV 93.3 fL (80.0-100.0); Mean Platelet Volume 7.3; Platelet Count 190 k/uL (150-450); RBC 4.45 m/uL (4.30-5.90); RDW 13.6 % (11.5-15.5); WBC 5.4 k/uL (3.8-10.6)
[2024-04-18 08:50] VITALS: BP 138/78; PULSE 94; TEMP 97.1
--- NOTE | 2024-04-18 08:52 | P.DS ---
Providers Date of admission: 04/15/24 20:28 Attending physician: Clay Yarbrough Consults: 04/15/24 20:26 Consult Physician Routine Consulting Provider: Rickey Lopez Consult Reason/Comments: aaa Do you want consulting provider notified?: Already Contacted Consult Physician Urgent Consulting Provider: Shanda Olmstead Consult Reason/Comments: Esophagitis, see CT report Do you want consulting provider notified?: Yes Primary care physician: Clay Yarbrough - Discharge Diagnosis(es) (1) Hypertension Current Visit: Yes Status: Acute (2) Abdominal aortic aneurysm Current Visit: Yes Status: Acute (3) Dizziness Current Visit: Yes Status: Acute (4) Esophagitis Current Visit: Yes Status: Acute (5) Tachycardia Current Visit: Yes Status: Acute Hospital Course: This is a 73-year-old male who presented to the emergency department with complaints of dizziness. Patient had been riding his bike and felt lightheaded and dizzy, so he sat down and then decided to present to the emergency department for evaluation. Patient had some tachycardia in the ER. Abdominal ultrasound found an adominal aortic aneurysm measuring 7cm. Chest CTA showed esophagitis. GI and vascular surgeon have been following. Yesterday patient underwent an EGD with Dr. Olmstead which showed grade D reflux esophagitis, mild antral gastritis, moderate size hiatal hernia, and moderate duodenitis. She is recommending patient start Protonix 40 mg twice daily. Patient seen this morning sitting up in bed. He is tolerating diet and vitals are stable. Vascular surgeon is planning for outpatient workup and treatment for abdominal aortic aneurysm. Patient may be discharged home today if cleared by consultants. Prescription sent for Protonix. Patient seen and evaluated by nurse practitioner, physician in agreement with plan Plan - Discharge Summary Discharge Rx Participant: No New Discharge Prescriptions: New Pantoprazole [Protonix] 40 mg PO AC-BID 30 Days #60 tab Continue lisinopriL [Zestril] 20 mg PO DAILY Tamsulosin [Flomax] 0.8 mg PO DAILY Rosuvastatin [Crestor] 20 mg PO DAILY amLODIPine [Norvasc] 5 mg PO DAILY Citalopram Hydrobromide [CeleXA] 20 mg PO DAILY Discharge Medication List Citalopram Hydrobromide [CeleXA] 20 mg PO DAILY 04/15/24 [History] Rosuvastatin [Crestor] 20 mg PO DAILY 04/15/24 [History] Tamsulosin [Flomax] 0.8 mg PO DAILY 04/15/24 [History] amLODIPine [Norvasc] 5 mg PO DAILY 04/15/24 [History] lisinopriL [Zestril] 20 mg PO DAILY 04/15/24 [History] Pantoprazole [Protonix] 40 mg PO AC-BID 30 Days #60 tab 04/18/24 [Rx] Follow up Appointment(s)/Referral(s): [facility] [facility] [NON-STAFF] - (Can help with house cleaning and meals on wheels if needed. ) Clay Yarbrough MD [Primary Care Provider] - 1 Week Activity/Diet/Wound Care/Special Instructions: repeat CMP in 1 week Discharge/Stand Alone Forms: Who Do I Call?, Personal Clarifier Discharge Disposition: HOME SELF-CARE
[2024-04-18 09:06] LABS: ALT 25 U/L (4-49); AST 20 U/L (17-59); African American GFR (CKD) 75 (>60 ml/min/1.73 sqM); Albumin 3.4 g/dL (3.5-5.0); Alkaline Phosphatase 75 U/L (38-126); Anion Gap 6 mmol/L; Blood Urea Nitrogen 20 mg/dL (9-20); Carbon Dioxide 23 mmol/L (22-30); Chloride 111 mmol/L (98-107); Glucose 119 mg/dL (74-99); Non-African American GFR(CKD) 65 (>60 ml/min/1.73 sqM); Potassium 4.4 mmol/L (3.5-5.1); Sodium 140 mmol/L (137-145); Total Bilirubin 0.6 mg/dL (0.2-1.3); Total Protein 5.9 g/dL (6.3-8.2)
--- NOTE | 2024-04-18 16:13 | P.PN ---
Subjective Progress Note Date: 04/18/24 Principal diagnosis: AAA Seen and examined today as a follow-up. He still denies any abdominal pain, back pain, shortness of breath or chest pain. No further dizziness nausea or vomiting. CTA abdomen and pelvis with findings of 6.5 cm AAA. Patient underwent his upper endoscopy yesterday with findings of severe esophagitis. Medicine is planning on discharging patient today Objective - Vital Signs Vital signs: Vital Signs Temp 97.1 F L 04/18/24 08:49 Pulse 94 04/18/24 08:49 Resp 18 04/18/24 08:49 BP 138/78 04/18/24 08:49 Pulse Ox 98 04/18/24 08:49 FiO2 Intake & Output 04/17/24 04/18/24 04/18/24 18:59 06:59 18:59 Intake Total 410 540 118 Output Total 300 Balance 110 540 118 Weight 91.3 kg Intake: IV 50 Oral 360 540 118 Output: Urine 300 - Exam General appearance: The patient is alert, oriented, appears in no acute distress. HET: Head is normocephalic and atraumatic. Pupils are equal and reactive. Neck: Supple. Heart: Regular. Lungs: Equal expansion, normal respiratory effort. Abdomen: Soft, nontender, nondistended. Extremities: Normal skin color and turgor. Palpable DP pulses. Neurological: No focal deficits. Strength and sensation are grossly intact. - Labs CBC & Chem 7: 04/18/24 08:13 04/18/24 08:13 Labs: Abnormal Lab Results - Last 24 Hours (Table) 04/18/24 Range/Units 08:13 Chloride 111 H (98-107) mmol/L Glucose 119 H (74-99) mg/dL Total Protein 5.9 L (6.3-8.2) g/dL Albumin 3.4 L (3.5-5.0) g/dL Assessment and Plan Assessment: 1. Asymptomatic abdominal aortic aneurysm measuring 6.5 cm 2. Syncope 3. Hypertension 4. Hyperlipidemia 5. Former smoker 6. Esophagitis Plan: 1. Continue symptomatic supportive care 2. Optimize blood pressures per primary medical team 3. CT angiogram abdomen/pelvis ordered and reviewed. Will obtain disc. 4. Patient is cleared from vascular surgery for discharge. He has to follow-up with Dr. Woods next week 04/23/2024 to discuss surgical intervention. Thank you for this consultation,. The impression and plan of care has been dictated as directed. Dr. Ambrose I performed a history and examination of this patient, discussed the same with the dictator. I agree with the dictator's note ,documented as a scribe. Any additional findings or plans will be noted.
--- NOTE | 2024-04-18 16:18 | P.PN ---
Subjective Progress Note Date: 04/18/24 Principal diagnosis: esophagitis This a pleasant 73-year-old male with a past medical history of hypertension, hyperlipidemia department by EMS yesterday. Apparently he had been out riding his bike he became very nauseous and dizzy and decided to sit down on the grass. A bystander had seen him and said he looked very pale he tried to stand but again was really dizzy and had to sit back down. EMS was called and he was brought into the emergency department. He had labs drawn that showed an elevated D-dimer. He therefore had a CT angiogram of the chest which was negative for pulmonary embolism but reported a 5.8 cm abdominal aortic aneurysm and esophagitis with esophageal thickening and lymph nodes. Gastroenterology was consulted for abnormal CT showing esophagitis. Patient denies any abdominal pain, no chest pain, no back pain or pain radiating from stomach to back. Denies any nausea or vomiting at this time. He denies history of peptic ulcer disease or GERD. Denies any history of known AAA disease. Currently denies any shortness of breath, chest pain, no fevers or chills. 04/18/2024 Patient seen and examined today as a follow-up yesterday he underwent upper endoscopy with findings of severe esophagitis. Protonix increased to 40 mg twice daily. Today he continues to deny any abdominal pain, nausea or vomiting. Plan is for discharge home. Hemoglobin stable at 13.2. Objective - Vital Signs Vital signs: Vital Signs Temp 97.1 F L 04/18/24 08:49 Pulse 94 04/18/24 08:49 Resp 18 04/18/24 08:49 BP 138/78 04/18/24 08:49 Pulse Ox 98 04/18/24 08:49 FiO2 Intake & Output 04/17/24 04/18/24 04/18/24 18:59 06:59 18:59 Intake Total 410 540 118 Output Total 300 Balance 110 540 118 Weight 91.3 kg Intake: IV 50 Oral 360 540 118 Output: Urine 300 - Exam General appearance: The patient is alert, oriented, appears in no acute distress. HET: Head is normocephalic and atraumatic. Pupils are equal and reactive. Neck: Supple. Heart: Regular. Lungs: Equal expansion, normal respiratory effort. Abdomen: Soft, nontender, nondistended. Extremities: Normal skin color and turgor. Palpable DP pulses. Neurological: No focal deficits. Strength and sensation are grossly intact. - Labs CBC & Chem 7: 04/18/24 08:13 04/18/24 08:13 Labs: Abnormal Lab Results - Last 24 Hours (Table) 04/18/24 Range/Units 08:13 Chloride 111 H (98-107) mmol/L Glucose 119 H (74-99) mg/dL Total Protein 5.9 L (6.3-8.2) g/dL Albumin 3.4 L (3.5-5.0) g/dL Assessment and Plan (1) Esophagitis Narrative/Plan: Patient is status post upper endoscopy with findings of linear erosions or ulcerations of the distal esophagus consistent with LA grade D reflux esophagitis, mild antral gastritis, moderate size hiatal hernia and moderate duodenitis. Continue patient on Protonix 40 mg twice a day and antireflux measures. Follow-up with biopsy results. Status: Acute Code(s): K20.90 - ESOPHAGITIS, UNSPECIFIED WITHOUT BLEEDING SNOMED Code(s): 45606785 (2) Abdominal aortic aneurysm Narrative/Plan: Vascular surgery following. Patient has no contraindications for proceeding with upper endoscopy per vascular surgery Status: Acute Code(s): I71.40 - ABDOMINAL AORTIC ANEURYSM, WITHOUT RUPTURE, UNSPECIFIED SNOMED Code(s): 828947636 (3) Abnormal CT of the chest Narrative/Plan: 73-year-old male presenting for dizziness and nausea had elevated D-dimer therefore underwent CT a of the chest which is reporting moderate hiatal hernia with mild wall thickening of the esophagus with multiple paraesophageal lymph n odes correlate for esophagitis and consider underlying neoplasm. Patient with no prior history of GERD or peptic ulcer disease. Denies any epigastric or abdominal pain. Was also noted to have large abdominal aortic aneurysm which is being followed by vascular surgery however no urgent intervention recommended. Will plan for further endoscopic evaluation of abnormal CT for possible esophagitis and noted paraesophageal lymph nodes. Status: Acute Code(s): R93.89 - ABNORMAL FINDINGS ON DX IMAGING OF OTH BODY STRUCTURES SNOMED Code(s): 52662698928577204 Plan: 1. Increase Protonix to 40 mg twice daily 2. Follow-up with gastroenterology in 1 to 2 weeks for biopsy results 3. Follow antireflux measures 4. Diet as tolerated 5. Patient is cleared from gastroenterology for discharge Thank you for this consultation, we will sign off at this time Dr. Nighat Olmstead I agree with the dictator's note, documented as a scribe by Marcelle Burrell.
== END 2024-04-18 11:10 | disposition home or self-care (01) | DRG 381 ==
LOC: EC 16:22 → 3SCARD 20:28
PROVIDERS: ADMIT Family Medicine; ATTEND Family Medicine
PROC: 0DB68ZX Excision of Stomach, Via Natural or Artificial Opening Endoscopic, Diagnostic (ICD-10-PCS; 2024-04-17)
PROC: 0DB38ZX Excision of Lower Esophagus, Via Natural or Artificial Opening Endoscopic, Diagnostic (ICD-10-PCS; principal; 2024-04-17 13:20)
DX: K22.10 Ulcer of esophagus without bleeding (principal); N17.9 Acute kidney failure, unspecified; K21.00 Gastro-esophageal reflux disease with esophagitis, without bleeding; I10 Essential (primary) hypertension; E78.00 Pure hypercholesterolemia, unspecified; I71.40 Abdominal aortic aneurysm, without rupture, unspecified; K29.70 Gastritis, unspecified, without bleeding; K44.9 Diaphragmatic hernia without obstruction or gangrene; K29.80 Duodenitis without bleeding; Z79.899 Other long term (current) drug therapy; Z87.891 Personal history of nicotine dependence
CPT/HCPCS: 36415; 43239; 71046; 71275; 74174; 80053; 83735; 84439; 84443; 84481; 84484; 85025; 85027; 85379; 85610; 85730; 88305; 88312; 93005; 93979; 96361; 96374; 96375; 96376; 99285

== ENCOUNTER → 2024-05-29 | Outpatient (CLI) | payer MEDICARE ==
--- NOTE | 2024-05-29 14:24 | US ---
EXAMINATION TYPE: US kidneys/renal and bladder DATE OF EXAM: 05/29/2024 COMPARISON: CT: 04/17/24 CLINICAL INDICATION: Male, 73 years old with history of R94.4 ABN RENAL FUNCTION; abnormal renal func tion TECHNIQUE: Grayscale and color Doppler imaging of the bilateral kidneys and urinary bladder: FINDINGS: EXAM MEASUREMENTS: Right Kidney: 8.0 x 4.0 x 3.9 cm Left Kidney: 14.7 x 5.0 x 5.6 cm Right Kidney: Multiple cystic areas seen. Largest measuring 2.4 x 2.0 x 1.9cm Left Kidney: Multiple cystic areas seen. Largest is in the renal sinus measuring 5.9 x 6.5 x 5.5cm Bladder: wnl Bilateral Jets seen: No There is no evidence for hydronephrosis at this point in time. Loss of cortical medullary differenti ation involving the right kidney with volume loss. No nephrolithiasis is seen. Bilateral simple-appea ring cysts within both kidneys with largest in the left renal sinus measuring up to 6.5 cm. The urina ry bladder is anechoic. IMPRESSION: 1. No hydronephrosis. 2. Bilateral benign renal cysts. 3. Atrophy of the right kidney. [facility], , 05/29/2024 2:21 PM
== END | disposition home or self-care (01) ==
LOC: RADUSWWP 13:33
PROVIDERS: ATTEND Family Medicine
CPT/HCPCS: 76770

== ENCOUNTER 2024-09-24 | Inpatient (IN) | payer MEDICARE ==
[2024-09-24 00:07] LABS: Glucose,Whole Blood 295 mg/dL (70-110)
--- NOTE | 2024-09-24 00:18 | ED ---
Weakness HPI - General Chief complaint: Fall Stated complaint: weakness Time Seen by Provider: 09/24/24 00:02 Source: EMS, RN notes reviewed, old records reviewed Mode of arrival: EMS Limitations: altered mental status - History of Present Illness Initial comments: This is a 73-year-old female to the ER for evaluation of weakness with a fall patient is not feeling well lightheaded dizzy and weak with symptoms of syncope. syncopal episode prior to arrival. Patient is brought in by EMS and a poor current historian. Patient is difficult to ascertain history of why he is here in the emergency department, patient has no complaints no chest pain headache abdominal pain MD Complaint: generalized weakness, lack of energy, difficulty walking -: days(s) Location: generalized Severity: severe Severity scale (1-10): 10 Consistency: constant Improves with: none Worsens with: none Context: recent illness Associated Symptoms: loss of appetite, nausea/vomiting, syncope - Related Data Home Medications Medication Instructions Recorded Confirmed Citalopram Hydrobromide [CeleXA] 20 mg PO DAILY 04/15/24 09/24/24 Rosuvastatin [Crestor] 20 mg PO DAILY 04/15/24 09/24/24 Tamsulosin [Flomax] 0.8 mg PO DAILY 04/15/24 09/24/24 amLODIPine [Norvasc] 5 mg PO DAILY 04/15/24 09/24/24 lisinopriL [Zestril] 20 mg PO DAILY 04/15/24 09/24/24 Previous Rx's Medication Instructions Recorded Pantoprazole [Protonix] 40 mg PO AC-BID 30 Days #60 tab 04/18/24 Allergies Allergy/AdvReac Type Severity Reaction Status Date / Time No Known Allergies Allergy Verified 09/24/24 09:32 Review of Systems ROS Statement: Those systems with pertinent positive or pertinent negative responses have been documented in the HPI. ROS Other: All systems not noted in ROS Statement are negative. Past Medical History Past Medical History: Hypertension Additional Past Medical History / Comment(s): high cholesterol History of Any Multi-Drug Resistant Organisms: None Reported Past Surgical History: Appendectomy Past Anesthesia/Blood Transfusion Reactions: No Reported Reaction Smoking Status: Former smoker General Exam Limitations: altered mental status, physical limitation General appearance: alert, anxious, in distress Head exam: Present: atraumatic, normocephalic, normal inspection Eye exam: Present: normal appearance, PERRL, EOMI. Absent: scleral icterus, conjunctival injection, periorbital swelling ENT exam: Present: normal exam, mucous membranes moist Neck exam: Present: normal inspection. Absent: tenderness, meningismus, lymphadenopathy Respiratory exam: Present: normal lung sounds bilaterally. Absent: respiratory distress, wheezes, rales, rhonchi, stridor Cardiovascular Exam: Present: normal rhythm, tachycardia, normal heart sounds. Absent: systolic murmur, diastolic murmur, rubs, gallop, clicks GI/Abdominal exam: Present: soft, normal bowel sounds. Absent: distended, tenderness, guarding, rebound, rigid Extremities exam: Present: normal inspection, full ROM, normal capillary refill. Absent: tenderness, pedal edema, joint swelling, calf tenderness Back exam: Present: normal inspection Neurological exam: Present: alert, oriented X3, CN II-XII intact Psychiatric exam: Present: normal affect, normal mood Skin exam: Present: warm, dry, intact, normal color. Absent: rash Course Vital Signs 09/24/24 09/24/24 09/24/24 00:04 00:56 04:28 Temperature 97.4 F L Pulse Rate 123 H 117 H 134 H Respiratory 18 24 18 Rate Blood Pressure 78/49 99/66 113/79 O2 Sat by Pulse 97 98 99 Oximetry Fraction of Inspired Oxygen (FIO2) 09/24/24 09/24/24 09/24/24 07:03 09:38 11:00 Temperature 98.2 F Pulse Rate 124 H 132 H 134 H Respiratory 18 20 20 Rate Blood Pressure 116/75 110/76 O2 Sat by Pulse 97 96 96 Oximetry Fraction of Inspired Oxygen (FIO2) 09/24/24 09/24/24 09/24/24 13:00 13:29 14:30 Temperature Pulse Rate 34 L 154 H 128 H Respiratory 16 36 H 30 H Rate Blood Pressure 82/47 115/79 64/44 O2 Sat by Pulse 94 L 92 L Oximetry Fraction of Inspired Oxygen (FIO2) 09/24/24 09/24/24 09/24/24 14:53 14:54 15:11 Temperature 98.1 F Pulse Rate 125 H 133 H Respiratory 31 H 20 Rate Blood Pressure 71/55 89/50 O2 Sat by Pulse 100 99 Oximetry Fraction of Inspired Oxygen (FIO2) 09/24/24 09/24/24 09/24/24 15:54 16:04 16:08 Temperature Pulse Rate 137 H 135 H Respiratory 33 H 30 H Rate Blood Pressure 70/46 72/56 72/50 O2 Sat by Pulse 100 96 Oximetry Fraction of Inspired Oxygen (FIO2) 09/24/24 09/24/24 09/24/24 16:15 17:10 17:32 Temperature Pulse Rate 135 H Respiratory 30 H Rate Blood Pressure 82/64 O2 Sat by Pulse 93 L Oximetry Fraction of 100 100 Inspired Oxygen (FIO2) 09/24/24 09/24/24 09/24/24 17:36 17:41 17:55 Temperature 97.8 F 97.8 F Pulse Rate 144 H 141 H 144 H Respiratory 16 16 20 Rate Blood Pressure 60/30 66/46 68/48 O2 Sat by Pulse 97 96 Oximetry Fraction of Inspired Oxygen (FIO2) 09/24/24 09/24/24 09/24/24 17:57 18:05 20:10 Temperature 97.8 F 97.8 F 97.8 F Pulse Rate 133 H 133 H 132 H Respiratory 22 24 33 H Rate Blood Pressure 64/43 75/53 64/48 O2 Sat by Pulse 96 95 Oximetry Fraction of Inspired Oxygen (FIO2) - Reevaluation(s) Reevaluation #1: 09/24/24 00:45 Got medical record is reviewed Reevaluation #2: 09/24/24 02:04 Blood pressure showing moderate improvement Reevaluation #3: 09/24/24 02:04 Patient informed of results and questions answered Reevaluation #4: Was pt. sent in by a medical professional or institution (, PA, HOME HEALTH BILLING SPECIALIST, urgent care, hospital, or correction...) When possible be specific @ -no Did you speak to anyone other than the patient for history (EMS, parent, family, police, friend...)? What history was obtained from this source @ -no Did you review nursing and triage notes (agree or disagree)? Why? @ -agree Are old charts reviewed (outside hosp., previous admission, EMS record, old EKG, old radiological studies, urgent care reports/EKG's, correction records)? Report findings @ -yes Differential Diagnosis (chest pain, altered mental status, abdominal pain women, abdominal pain men, vaginal bleeding, weakness, fever, dyspnea, syncope, headache, dizziness, GI bleed, back pain, seizure, CVA, palpatations, mental health, musculoskeletal)? @ -prior EKG interpreted by me (3pts min.). @ -yes X-rays interpreted by me (1pt min.). @ -yes negative for acute disease CT interpreted by me (1pt min.). @ -no U/S interpreted by me (1pt. min.). @ -no What testing was considered but not performed or refused? (CT, X-rays, U/S, labs)? Why? @ -none What meds were considered but not given or refused? Why? @ -none Did you discuss the management of the patient with other professionals (professionals i.e. DrDavid, PA, HOME HEALTH BILLING SPECIALIST, lab, RT, psych nurse, manager social, minilab operator, teacher, special forces officer, case managers)? Give summary @ -no Was smoking cessation discussed for >3mins.? @ -no Was critical care preformed (if so, how long)? @ -yes31 Were there social determinants of health that impacted care today? How? (Homelessness, low income, unemployed, alcoholism, drug addiction, transportation, low edu. Level, literacy, decrease access to med. care, care home, rehab)? @ -none Was there de-escalation of care discussed even if they declined (Discuss DNR or withdrawal of care, Hospice)? DNR status @ -no What co-morbidities impacted this encounter? (DM, HTN, Smoking, COPD, CAD, Cancer, CVA, ARF, Chemo, Hep., AIDS, mental health diagnosis, sleep apnea, morbid obesity)? @ -none Was patient admitted / discharged? Hospital course, mention meds given and route, prescriptions, significant lab abnormalities, going to OR and other pertinent info. @ - 73 male to the ER for evaluation of hypotension weakness and fall, no traumatic injury from this fall. Patient also had a near syncopal event will admit for IV antibiotics with concern for sepsis supportive care for and hypotension Admit syncope Undiagnosed new problem with uncertain prognosis? @ -no Drug Therapy requiring intensive monitoring for toxicity (Heparin, Nitro, Insulin, Cardizem)? @ -no Were any procedures done? @ -no Diagnosis/symptom? @ -Syncope with dehydration concern for sepsis Acute, or Chronic, or Acute on Chronic? @ -Acute Uncomplicated (without systemic symptoms) or Complicated (systemic symptoms)? @ -Complicated Side effects of treatment? @ -no Exacerbation, Progression, or Severe Exacerbation? @ -exacerbation Poses a threat to life or bodily function? How? (Chest pain, [place], FL, pneumonia, PE, COPD, DKA, ARF, appy, cholecystitis, CVA, Diverticulitis, Homicidal, Suicidal, threat to staff... and all critical care pts) @ -yes hypotension and syncopal event Reevaluation #5: Differential Weakness: Hypoglycemia, shock, sepsis, hyponatremia, anemia, infection, FL, ETOH, adverse medicine reaction, overdose, stroke, this is not meant to be an all-inclusive list. - Consultations Consultation #1: Spoke with [facility] who agrees to admit this patient EKG Findings - EKG Comments: EKG Findings:: EKG is Sinus tach 121 DC 153 QRS 108 QTc 431 - EKG Results: EKG: interpreted by RAISA EKG shows: tachycardia Medical Decision Making - Medical Decision Making 73 male to the ER for evaluation of hypotension weakness and fall, no traumatic injury from this fall. Patient also had a near syncopal event will admit for IV antibiotics with concern for sepsis supportive care for and hypotension - Lab Data Result diagrams: 09/24/24 14:46 09/24/24 14:46 Lab Results 09/24/24 09/24/24 09/24/24 Range/Units 00:06 00:10 00:10 WBC 14.3 H (3.8-10.6) k/uL RBC 3.42 L (4.30-5.90) m/uL Hgb 10.6 L (13.0-17.5) gm/dL Hct 31.8 L (39.0-53.0) % MCV 93.0 (80.0-100.0) fL MCH 31.1 (25.0-35.0) pg MCHC 33.4 (31.0-37.0) g/dL RDW 14.3 (11.5-15.5) % Plt Count 192 (150-450) k/uL MPV 8.1 Neutrophils % 83 % Lymphocytes % 11 % Monocytes % 5 % Eosinophils % 1 % Basophils % 0 % Neutrophils # 11.9 H (1.3-7.7) k/uL Lymphocytes # 1.5 (1.0-4.8) k/uL Monocytes # 0.7 (0-1.0) k/uL Eosinophils # 0.1 (0-0.7) k/uL Basophils # 0.0 (0-0.2) k/uL PT 12.0 (10.0-12.5) sec INR 1.1 (<1.2) APTT 22.1 (22.0-30.0) sec Sodium (137-145) mmol/L Potassium (3.5-5.1) mmol/L Chloride (98-107) mmol/L Carbon Dioxide (22-30) mmol/L Anion Gap mmol/L BUN (9-20) mg/dL Creatinine (0.66-1.25) mg/dL Est GFR (CKD-EPI)AfAm (>60 ml/min/1.73 sqM) Est GFR (CKD-EPI)NonAf (>60 ml/min/1.73 sqM) Glucose (74-99) mg/dL POC Glucose (mg/dL) 295 H (70-110) mg/dL POC Glu [employer] [address] [address] [address] Glu mg/dL mg/dL Hemoglobin A1c (<=6.0) % Lactic Ac Sepsis Rflx Plasma Lactic Acid Joe (0.7-2.0) mmol/L Calcium (8.4-10.2) mg/dL Phosphorus (2.5-4.5) mg/dL Magnesium (1.6-2.3) mg/dL Total Bilirubin (0.2-1.3) mg/dL AST (17-59) U/L ALT (4-49) U/L Alkaline Phosphatase (38-126) U/L Troponin I (0.000-0.034) ng/mL NT-Pro-B Natriuret Pep pg/mL Total Protein (6.3-8.2) g/dL Albumin (3.5-5.0) g/dL 09/24/24 09/24/24 09/24/24 Range/Units 00:10 00:10 00:10 WBC (3.8-10.6) k/uL RBC (4.30-5.90) m/uL Hgb (13.0-17.5) gm/dL Hct (39.0-53.0) % MCV (80.0-100.0) fL MCH (25.0-35.0) pg MCHC (31.0-37.0) g/dL RDW (11.5-15.5) % Plt Count (150-450) k/uL MPV Neutrophils % % Lymphocytes % % Monocytes % % Eosinophils % % Basophils % % Neutrophils # (1.3-7.7) k/uL Lymphocytes # (1.0-4.8) k/uL Monocytes # (0-1.0) k/uL Eosinophils # (0-0.7) k/uL Basophils # (0-0.2) k/uL PT (10.0-12.5) sec INR (<1.2) APTT (22.0-30.0) sec Sodium 138 (137-145) mmol/L Potassium 4.2 (3.5-5.1) mmol/L Chloride 106 (98-107) mmol/L Carbon Dioxide 15 L (22-30) mmol/L Anion Gap 17 mmol/L BUN 27 H (9-20) mg/dL Creatinine 1.38 H (0.66-1.25) mg/dL Est GFR (CKD-EPI)AfAm 59 (>60 ml/min/1.73 sqM) Est GFR (CKD-EPI)NonAf 51 (>60 ml/min/1.73 sqM) Glucose 274 H (74-99) mg/dL POC Glucose (mg/dL) (70-110) mg/dL POC Glu [employer] Master ID Estimated [address] Glu mg/dL mg/dL Hemoglobin A1c (<=6.0) % Lactic Ac Sepsis Rflx Plasma Lactic Acid Joe 7.8 H* (0.7-2.0) mmol/L Calcium 7.2 L (8.4-10.2) mg/dL Phosphorus 4.7 H (2.5-4.5) mg/dL Magnesium 1.6 (1.6-2.3) mg/dL Total Bilirubin 0.7 (0.2-1.3) mg/dL AST 30 (17-59) U/L ALT 39 (4-49) U/L Alkaline Phosphatase 67 (38-126) U/L Troponin I <0.012 (0.000-0.034) ng/mL NT-Pro-B Natriuret Pep 163 pg/mL Total Protein 5.1 L (6.3-8.2) g/dL Albumin 2.8 L (3.5-5.0) g/dL 09/24/24 09/24/24 Range/Units 00:10 00:53 WBC (3.8-10.6) k/uL RBC (4.30-5.90) m/uL Hgb (13.0-17.5) gm/dL Hct (39.0-53.0) % MCV (80.0-100.0) fL MCH (25.0-35.0) pg MCHC (31.0-37.0) g/dL RDW (11.5-15.5) % Plt Count (150-450) k/uL MPV Neutrophils % % Lymphocytes % % Monocytes % % Eosinophils % % Basophils % % Neutrophils # (1.3-7.7) k/uL Lymphocytes # (1.0-4.8) k/uL Monocytes # (0-1.0) k/uL Eosinophils # (0-0.7) k/uL Basophils # (0-0.2) k/uL PT (10.0-12.5) sec INR (<1.2) APTT (22.0-30.0) sec Sodium (137-145) mmol/L Potassium (3.5-5.1) mmol/L Chloride (98-107) mmol/L Carbon Dioxide (22-30) mmol/L Anion Gap mmol/L BUN (9-20) mg/dL Creatinine (0.66-1.25) mg/dL Est GFR (CKD-EPI)AfAm (>60 ml/min/1.73 sqM) Est GFR (CKD-EPI)NonAf (>60 ml/min/1.73 sqM) Glucose (74-99) mg/dL POC Glucose (mg/dL) (70-110) mg/dL POC Glu [facility] Master ID Est[address] Glu mg/dL 131 mg/dL Hemoglobin A1c 6.2 H (<=6.0) % Lactic Ac Sepsis Rflx Y Plasma Lactic Acid Joe (0.7-2.0) mmol/L Calcium (8.4-10.2) mg/dL Phosphorus (2.5-4.5) mg/dL Magnesium (1.6-2.3) mg/dL Total Bilirubin (0.2-1.3) mg/dL AST (17-59) U/L ALT (4-49) U/L Alkaline Phosphatase (38-126) U/L Troponin I (0.000-0.034) ng/mL NT-Pro-B Natriuret Pep pg/mL Total Protein (6.3-8.2) g/dL Albumin (3.5-5.0) g/dL - EKG Data -: EKG Interpreted by Me - Radiology Data Radiology results: report reviewed (X-rays negative for acute disease), image reviewed Critical Care Time Critical Care Time: Yes Total Critical Care Time: 31 Disposition Clinical Impression: Pre-syncope, Fall, Weakness, Hypotension, Lactic acidosis, Dizziness Disposition: ADMITTED IP TO THIS [facility] Condition: Serious Is patient prescribed a controlled substance at d/c from ED?: No Time of Disposition: 02:00
[2024-09-24 00:22] LABS: Basophils % (A) 0 %; Eosinophils # (A) 0.1 k/uL (0-0.7); Eosinophils % (A) 1 %; HCT 31.8 % (39.0-53.0); HGB 10.6 gm/dL (13.0-17.5); Lymphocytes # (A) 1.5 k/uL (1.0-4.8); Lymphocytes % (A) 11 %; MCH 31.1 pg (25.0-35.0); MCHC 33.4 g/dL (31.0-37.0); Mean Platelet Volume 8.1; Monocytes # (A) 0.7 k/uL (0-1.0); Monocytes % (A) 5 %; Neutrophils # (A) 11.9 k/uL (1.3-7.7); Neutrophils % (A) 83 %; Platelet Count 192 k/uL (150-450); RBC 3.42 m/uL (4.30-5.90); RDW 14.3 % (11.5-15.5); WBC 14.3 k/uL (3.8-10.6)
[2024-09-24] MEDS: SODIUM CHLORIDE 0.9% 1,000 ML IV STA (00:23)
[2024-09-24 00:34] LABS: AST 30 U/L (17-59); African American GFR (CKD) 59 (>60 ml/min/1.73 sqM); Albumin 2.8 g/dL (3.5-5.0); Alkaline Phosphatase 67 U/L (38-126); Anion Gap 17 mmol/L; Blood Urea Nitrogen 27 mg/dL (9-20); Calcium 7.2 mg/dL (8.4-10.2); Carbon Dioxide 15 mmol/L (22-30); Chloride 106 mmol/L (98-107); Glucose 274 mg/dL (74-99); Magnesium 1.6 mg/dL (1.6-2.3); Non-African American GFR(CKD) 51 (>60 ml/min/1.73 sqM); Phosphorus 4.7 mg/dL (2.5-4.5); Potassium 4.2 mmol/L (3.5-5.1); Sodium 138 mmol/L (137-145); Total Bilirubin 0.7 mg/dL (0.2-1.3); Total Protein 5.1 g/dL (6.3-8.2)
[2024-09-24 00:42] LABS: NT-Pro-B-Type Natriuretic Pept 163 pg/mL
[2024-09-24 00:52] LABS: ALT 39 U/L (4-49)
[2024-09-24 00:55] LABS: INR 1.1 (<1.2); Partial Thromboplastin Time 22.1 sec (22.0-30.0)
[2024-09-24] MEDS: ONDANSETRON 4 MG/2 ML VIAL IVP STA (00:55)
[2024-09-24] MEDS: LACTATED RINGERS 1,000 ML BAG IV STA (01:16)
--- NOTE | 2024-09-24 01:54 | XR ---
EXAM: XR Chest, 1 View CLINICAL HISTORY: ITS.REASON XR Reason: weak TECHNIQUE: Frontal view of the chest. COMPARISON: No relevant prior studies available. FINDINGS: Lungs: No consolidation or mass. Pleural space: No acute findings. Heart: cardiomegaly. Bones/joints: No acute findings. IMPRESSION: No acute cardiopulmonary process.
[2024-09-24] MEDS ORDERED: NALOXONE 0.4 MG/ML 1 ML VIAL IV PRN (02:02)
[2024-09-24] MEDS ORDERED: IBUPROFEN 400 MG TAB PO PRN (02:02)
[2024-09-24] MEDS: PIPERACILLIN-TAZOBACTAM 3.375 GM in SODIUM CHLORIDE 0.9% 100 ML IVPB STA (03:35)
[2024-09-24] MEDS: LACTATED RINGERS 1,000 ML IV SCH (04:29)
[2024-09-24 05:45] LABS: Glucose,Whole Blood 135 mg/dL (70-110)
[2024-09-24 08:04] LABS: Influenza A Not Detected (Not Detectd); Influenza B Not Detected (Not Detectd); RSV Not Detected (Not Detectd)
--- NOTE | 2024-09-24 08:52 | P.HPIM ---
History of Present Illness H&P Date: 09/24/24 This is a 73-year-old male who presented to the emergency department with complaints of a fall at home. Patient reports he was getting up and trying to go to the bathroom and he felt like he was going to pass out. Patient reports he felt very dizzy and weak. Reportedly has been eating and drinking regularly at home. Patient was hypotensive upon admission. His heart rate continues to be elevated. Blood sugar elevated on admission, patient does not have a history of diabetes. Patient does have a recent history of abdominal aortic aneurysm measuring 7 cm. He reportedly was following up on this as an outpatient. Further medical history as noted below. Review of Systems Constitutional: Reports weakness, Denies chills, Denies fever Ears, nose, mouth and throat: Reports vertigo Cardiovascular: Denies chest pain, Denies dyspnea on exertion Respiratory: Denies cough, Denies dyspnea Gastrointestinal: Denies nausea, Denies vomiting Musculoskeletal: Denies arm numbness/tingling, Denies leg numbness/tingling Neurological: Reports weakness, Denies headaches Past Medical History Past Medical History: Hypertension Additional Past Medical History / Comment(s): high cholesterol History of Any Multi-Drug Resistant Organisms: None Reported Past Surgical History: Appendectomy Past Anesthesia/Blood Transfusion Reactions: No Reported Reaction Smoking Status: Former smoker Medications and Allergies Home Medications Medication Instructions Recorded Confirmed Type Citalopram Hydrobromide [CeleXA] 20 mg PO DAILY 04/15/24 04/15/24 History Rosuvastatin [Crestor] 20 mg PO DAILY 04/15/24 04/15/24 History Tamsulosin [Flomax] 0.8 mg PO DAILY 04/15/24 04/15/24 History amLODIPine [Norvasc] 5 mg PO DAILY 04/15/24 04/15/24 History lisinopriL [Zestril] 20 mg PO DAILY 04/15/24 04/15/24 History Pantoprazole [Protonix] 40 mg PO AC-BID 30 Days #60 tab 04/18/24 Rx Allergies Allergy/AdvReac Type Severity Reaction Status Date / Time No Known Allergies Allergy Verified 04/15/24 19:05 Physical Exam Vitals: Vital Signs Temp Pulse Resp BP Pulse Ox 09/24/24 07:03 98.2 F 124 H 18 116/75 97 09/24/24 04:28 134 H 18 113/79 99 09/24/24 00:56 117 H 24 99/66 98 09/24/24 00:04 97.4 F L 123 H 18 78/49 97 Intake and Output 09/23/24 09/24/24 09/24/24 22:59 06:59 14:59 Other: Weight 102.058 kg - Constitutional General appearance: cooperative, no acute distress - EENT Eyes: PERRLA - Neck Neck: no lymphadenopathy, normal ROM, no rigidity - Respiratory Respiratory: bilateral: CTA - Cardiovascular Rhythm: regular Heart sounds: normal: S1, S2 - Gastrointestinal General gastrointestinal: soft, no tenderness - Integumentary Integumentary: normal, normal turgor - Musculoskeletal Musculoskeletal: generalized weakness, strength equal bilaterally - Psychiatric Psychiatric: A&O x's 3 Results CBC & Chem 7: 09/24/24 00:10 09/24/24 00:10 Labs: Abnormal Lab Results - Last 24 Hours (Table) 09/24/24 09/24/24 09/24/24 Range/Units 00:06 00:10 00:10 WBC 14.3 H (3.8-10.6) k/uL RBC 3.42 L (4.30-5.90) m/uL Hgb 10.6 L (13.0-17.5) gm/dL Hct 31.8 L (39.0-53.0) % Neutrophils # 11.9 H (1.3-7.7) k/uL Carbon Dioxide 15 L (22-30) mmol/L BUN 27 H (9-20) mg/dL Creatinine 1.38 H (0.66-1.25) mg/dL Glucose 274 H (74-99) mg/dL POC Glucose (mg/dL) 295 H (70-110) mg/dL Plasma Lactic Acid Joe (0.7-2.0) mmol/L Calcium 7.2 L (8.4-10.2) mg/dL Phosphorus 4.7 H (2.5-4.5) mg/dL Total Protein 5.1 L (6.3-8.2) g/dL Albumin 2.8 L (3.5-5.0) g/dL 09/24/24 09/24/24 09/24/24 Range/Units 00:10 03:46 05:44 WBC (3.8-10.6) k/uL RBC (4.30-5.90) m/uL Hgb (13.0-17.5) gm/dL Hct (39.0-53.0) % Neutrophils # (1.3-7.7) k/uL Carbon Dioxide (22-30) mmol/L BUN (9-20) mg/dL Creatinine (0.66-1.25) mg/dL Glucose (74-99) mg/dL POC Glucose (mg/dL) 135 H (70-110) mg/dL Plasma Lactic Acid Joe 7.8 H* 4.2 H* (0.7-2.0) mmol/L Calcium (8.4-10.2) mg/dL Phosphorus (2.5-4.5) mg/dL Total Protein (6.3-8.2) g/dL Albumin (3.5-5.0) g/dL Assessment and Plan (1) Fall Current Visit: Yes Status: Acute Code(s): W19.XXXA - UNSPECIFIED FALL, INITIAL ENCOUNTER SNOMED Code(s): 7534644 (2) Hypotension Current Visit: Yes Status: Acute Code(s): I95.9 - HYPOTENSION, UNSPECIFIED SNOMED Code(s): 94625241 (3) Lactic acidosis Current Visit: Yes Status: Acute Code(s): E87.20 - ACIDOSIS, UNSPECIFIED SNOMED Code(s): 08311559 (4) Pre-syncope Current Visit: Yes Status: Acute Code(s): R55 - SYNCOPE AND COLLAPSE SNOMED Code(s): 380112488 (5) Weakness Current Visit: Yes Status: Acute Code(s): R53.1 - WEAKNESS SNOMED Code(s): 00567211 (6) Abdominal aortic aneurysm Current Visit: No Status: Acute Code(s): I71.40 - ABDOMINAL AORTIC ANEURYSM, WITHOUT RUPTURE, UNSPECIFIED SNOMED Code(s): 168605832 (7) Dizziness Current Visit: No Status: Acute Code(s): R42 - DIZZINESS AND GIDDINESS SNOMED Code(s): 725111395 (8) Tachycardia Current Visit: No Status: Acute Code(s): R00.0 - TACHYCARDIA, UNSPECIFIED SNOMED Code(s): 6812550 Plan: Continue home medications, will hold lisinopril and amlodipine for now. Consult to cardiology. Order echo and carotid. Check a hemoglobin A1C. Patient seen and evaluated by nurse practitioner, physician in agreement with plan.
--- NOTE | 2024-09-24 08:57 | US ---
EXAMINATION TYPE: US carotid duplex BILAT DATE OF EXAM: 09/24/2024 COMPARISON: NONE CLINICAL INDICATION: Male, 73 years old with history of syncope; On HTN meds per patient. Additional History: .... TECHNIQUE: Grayscale, color Doppler and spectral Doppler evaluation of the bilateral carotid systems and vertebral arteries. Indirect Doppler criteria was utilized. FINDINGS: EXAM MEASUREMENTS: RIGHT: Peak Systolic Velocity (PSV) cm/sec ----- Right CCA: 71.1 ----- Right ICA: 111.3 ----- Right ECA: 80.1 ICA/CCA ratio: 1.6 RIGHT: End Diastole cm/sec ----- Right CCA: 2.3 ----- Right ICA: 2.5 ----- Right ECA: 3.2 LEFT: Peak Systolic Velocity (PSV) cm/sec ----- Left CCA: 64.8 ----- Left ICA: 95.6 ----- Left ECA: 92.2 ICA/CCA ratio: 1.5 LEFT: End Diastole cm/sec ----- Left CCA: 4.2 ----- Left ICA: 3.1 ----- Left ECA: 4.0 VERTEBRALS (direction of flow): Right Vertebral: Antegrade Left Vertebral: Antegrade Rhythm: Arrhythmia SENSOR TECHNICIAN NOTES: No elevated velocities or plaque seen at time of scan Color Doppler imaging shows patency with blood flow throughout the carotid artery. Spectral waveforms are within normal limits. IMPRESSION: No evidence of hemodynamically significant stenosis. Criteria for Assigning % of Stenosis / Diameter reduction (Estimation based on the indirect measurements of the internal carotid artery velocities (ICA PSV). 1. Normal (no stenosis)=ICA PSV < 125 cm/s: ratio < 2.0: ICA EDV<40 cm/s. 2. Less than 50% stenosis=ICA PSV < 125 cm/s: ratio < 2.0: ICA EDV<40 cm/s. 3. 50 to 69% stenosis=ICA PSV of 125 to 230 cm/s: ration 2.0 ? 4.0: ICA EDV 40-100 cm/s. 4. Greater than 70% stenosis to near occlusion= ICA PSV > 230 cm/s: ratio > 4.0: ICA EDV > 100 cm/s. 5. Near occlusion= ICA PSV velocities may be low or undetectable: variable ratio and ICA EDV. 6. Total occlusion=unable to detect flow. [facility], , 09/24/2024 8:55 AM
[2024-09-24] MEDS ORDERED: PANTOPRAZOLE 40 MG/10 ML VIAL IV SCH (09:00)
[2024-09-24] MEDS: CITALOPRAM HYDROBROMIDE 20 MG TAB PO SCH (09:24)
[2024-09-24] MEDS: ATORVASTATIN 40 MG TAB PO SCH (09:24)
[2024-09-24] MEDS: TAMSULOSIN 0.4 MG CAP.ER.24H PO SCH (09:24)
[2024-09-24] MEDS: PANTOPRAZOLE 40 MG/10 ML VIAL IV SCH (09:25)
[2024-09-24] MEDS: ACETAMINOPHEN TAB 325 MG TAB PO PRN (09:25)
[2024-09-24] MEDS: PIPERACILLIN-TAZOBACTAM 3.375 GM in SODIUM CHLORIDE 0.9% 100 ML IVPB SCH (09:26)
--- NOTE | 2024-09-24 11:56 | P.CRDCN ---
History of Present Illness History of present illness: HISTORY OF PRESENT ILLNESS: This is a 73-year-old male with a past medical history significant for hypertension, hyperlipidemia, and AAA. Patient does not follow with a sr. pricing analyst. We have been asked to see the patient in consultation for syncope and sinus tachycardia. Patient examined at the bedside in the emergency room. Patient states yesterday he was walking to the bathroom and got about retirement there when he started to feel dizzy and fell down. He denies having any syncope. He states this is the second time this has happened to him. He states he is not very active at baseline and describes himself as a " couch potato". He reports having abdominal pain this morning. He denies any chest pain or pressure. He does report having shortness of breath at the time of examination. He denies having any fever or chills. Patient states he has been eating okay at home but has not been drinking much fluid. Patient does have a emesis basin at the bedside with brown fluid in it that the patient states is from coughing. Bedside telemetry reveals sinus tachycardia with a heart rate in the 130s. The patient does report a history of a AAA and is scheduled to undergo surgical repair next month by vascular surgery. DIAGNOSTICS: - EKG reveals sinus tachycardia with no signs of acute ischemia. - Chest xray negative for acute process. - Laboratory data: WBC 14.3. Hemoglobin 10.6. Platelet count 192. Sodium 138. Potassium 4.2. BUN 27. Creatinine 1.38. Troponin negative x 1. proBNP 163. - Current home cardiac medications include lisinopril 20 mg daily, amlodipine 5 mg daily, and rosuvastatin 20 mg daily. - No previous echocardiogram, stress test, or cardiac catheterization available in EMR for review REVIEW OF SYSTEMS: At the time of my exam: CONSTITUTIONAL: Denies fever or chills. HEENT: Denies blurred vision, vision changes, or eye pain. Denies hemoptysis CARDIOVASCULAR: Denies chest pain. Denies orthopnea. Denies PND. Denies palpitations RESPIRATORY: Denies shortness of breath. GASTROINTESTINAL: Reports abdominal pain. Denies nausea or vomiting. HEMATOLOGIC: Denies bleeding disorders. GENITOURINARY: Denies any blood in urine. SKIN: Denies pruitis. Denies rash. PHYSICAL EXAM: VITAL SIGNS: Reviewed. GENERAL: Well-developed in no acute distress. HEENT: Head is normocephalic. Pupils are equal, round. Sclerae anicteric. Mucous membranes of the mouth are moist. Neck supple. No JVD or thyromegaly LUNGS: Respirations even and unlabored. Lungs essentially clear to auscultation bilaterally. HEART: Tachycardic. regular rate and rhythm. S1 and S2 heard. Systolic murmur noted ABDOMEN: Soft. Nondistended. Nontender. EXTREMITIES: Normal range of motion. No clubbing or cyanosis. Peripheral pulses intact. No lower extremity edema NEUROLOGIC: Awake and alert. Oriented x 3. ASSESSMENT: Dizziness with fall, WITHOUT syncope Lactic acidosis Leukocytosis Sinus tachycardia Abdominal pain with brown emesis/sputum Hypertension Hyperlipidemia AAA, scheduled to undergo surgical repair next month PLAN: Obtain 2D echo to assess cardiac structure and function Continue IV fluid hydration. Repeat kidney function in a.m. Check TSH Repeat EKG tomorrow Sinus tachycardia is physiological secondary to underlying acute issues. Defer treatment of primary issues to internal medicine Continue telemetry monitoring Further recommendations pending patient course Nurse practitioner note has been reviewed by physician. Signing provider agrees with the documented findings, assessment, and plan of care documented by DOG BOARDER as a scribe. Past Medical History Past Medical History: Hypertension Additional Past Medical History / Comment(s): high cholesterol History of Any Multi-Drug Resistant Organisms: None Reported Past Surgical History: Appendectomy Past Anesthesia/Blood Transfusion Reactions: No Reported Reaction Smoking Status: Former smoker Medications and Allergies Home Medications Medication Instructions Recorded Confirmed Type Citalopram Hydrobromide [CeleXA] 20 mg PO DAILY 04/15/24 09/24/24 History Rosuvastatin [Crestor] 20 mg PO DAILY 04/15/24 09/24/24 History Tamsulosin [Flomax] 0.8 mg PO DAILY 04/15/24 09/24/24 History amLODIPine [Norvasc] 5 mg PO DAILY 04/15/24 09/24/24 History lisinopriL [Zestril] 20 mg PO DAILY 04/15/24 09/24/24 History Pantoprazole [Protonix] 40 mg PO AC-BID 30 Days #60 tab 04/18/24 09/24/24 Rx Allergies Allergy/AdvReac Type Severity Reaction Status Date / Time No Known Allergies Allergy Verified 09/24/24 09:32 Physical Exam Vitals: Vital Signs Temp Pulse Resp BP Pulse Ox 09/24/24 09:38 132 H 20 110/76 96 09/24/24 07:03 98.2 F 124 H 18 116/75 97 09/24/24 04:28 134 H 18 113/79 99 09/24/24 00:56 117 H 24 99/66 98 09/24/24 00:04 97.4 F L 123 H 18 78/49 97 Intake and Output 09/23/24 09/24/24 09/24/24 22:59 06:59 14:59 Other: Weight 102.058 kg Results 09/24/24 00:10 09/24/24 00:10 Cardiac Enzymes 09/24/24 09/24/24 Range/Units 00:10 00:10 AST 30 (17-59) U/L Troponin I <0.012 (0.000-0.034) ng/mL Coagulation 09/24/24 Range/Units 00:10 PT 12.0 (10.0-12.5) sec APTT 22.1 (22.0-30.0) sec CBC 09/24/24 Range/Units 00:10 WBC 14.3 H (3.8-10.6) k/uL RBC 3.42 L (4.30-5.90) m/uL Hgb 10.6 L (13.0-17.5) gm/dL Hct 31.8 L (39.0-53.0) % Plt Count 192 (150-450) k/uL Comprehensive Metabolic Panel 09/24/24 Range/Units 00:10 Sodium 138 (137-145) mmol/L Potassium 4.2 (3.5-5.1) mmol/L Chloride 106 (98-107) mmol/L Carbon Dioxide 15 L (22-30) mmol/L BUN 27 H (9-20) mg/dL Creatinine 1.38 H (0.66-1.25) mg/dL Glucose 274 H (74-99) mg/dL Calcium 7.2 L (8.4-10.2) mg/dL AST 30 (17-59) U/L ALT 39 (4-49) U/L Alkaline Phosphatase 67 (38-126) U/L Total Protein 5.1 L (6.3-8.2) g/dL Albumin 2.8 L (3.5-5.0) g/dL Current Medications Generic Name Dose Route Start Last Admin Trade Name Freq PRN Reason Stop Dose Admin Acetaminophen 650 mg 09/24/24 02:02 09/24/24 09:25 Acetaminophen Tab 325 Mg Tab PO 650 mg Q6HR PRN Administration Mild Pain or Fever > 100.5 Atorvastatin Calcium 40 mg 09/24/24 09:00 09/24/24 09:24 Atorvastatin 40 Mg Tab PO 40 mg DAILY EDMOND Administration Citalopram Hydrobromide 20 mg 09/24/24 09:00 09/24/24 09:24 Citalopram Hydrobromide 20 Mg Tab PO 20 mg DAILY EDMOND Administration Lactated Ringer's 1,000 mls @ 130 mls/hr 09/24/24 02:15 09/24/24 09:41 Lactated Ringers IV Not Given .[id number] EDMOND Piperacillin Sod/Tazobactam 100 mls @ 25 mls/hr 09/24/24 08:00 09/24/24 09:26 Sod 3.375 gm/ Sodium Chloride IVPB 25 mls/hr Q8HR EDMOND Administration Ibuprofen 400 mg 09/24/24 02:02 Ibuprofen 400 Mg Tab PO Q6HR PRN Mild Pain or Fever > 100.5 Morphine Sulfate 4 mg 09/24/24 02:02 Morphine Sulfate 4 Mg/Ml Syringe IV Q4HR PRN Severe Pain (Scale 7 to 10) Naloxone HCl 0.2 mg 09/24/24 02:02 Naloxone 0.4 Mg/Ml 1 Ml Vial IV Q2M PRN Opioid Reversal Ondansetron HCl 4 mg 09/24/24 02:02 Ondansetron 4 Mg/2 Ml Vial IVP Q8HR PRN Nausea And Vomiting Pantoprazole Sodium 40 mg 09/24/24 09:00 09/24/24 09:25 Pantoprazole 40 Mg/10 Ml Vial IV 40 mg DAILY EDMOND Administration Tamsulosin HCl 0.8 mg 09/24/24 09:00 09/24/24 09:24 Tamsulosin 0.4 Mg Cap.Er.24h PO 0.8 mg DAILY EDMOND Administration Intake and Output 09/23/24 09/24/24 09/24/24 22:59 06:59 14:59 Other: Weight 102.058 kg 09/24/24 00:10 09/24/24 00:10
[2024-09-24] MEDS: SODIUM CHLORIDE 0.9% 1,000 ML IV SCH (12:22)
[2024-09-24] MEDS: DOCUSATE 100 MG CAP PO SCH (12:30)
[2024-09-24] MEDS: ONDANSETRON 4 MG/2 ML VIAL IVP PRN (12:59)
[2024-09-24 13:00] LABS: Glucose,Whole Blood 208 mg/dL (70-110)
[2024-09-24] MEDS: levETIRAcetam IV 500 MG/5 ML VIAL IVP STA (13:09)
[2024-09-24] MEDS: MAGNESIUM SULFATE-D5W PMX 2 GM in DEXTROSE/WATER 1 100ML.BAG IVPB ONE (13:09)
--- NOTE | 2024-09-24 13:41 | XR ---
EXAMINATION TYPE: XR chest 1V portable DATE OF EXAM: 09/24/2024 1:33 PM COMPARISON: Chest radiographs from 04/15/2024 TECHNIQUE: XR chest 1V portable Portable AP radiograph of the chest. CLINICAL INDICATION:Male, 73 years old with history of possible aspiration; FINDINGS: Lungs/Pleura: There is no evidence of pleural effusion, focal consolidation, or pneumothorax. Pulmonary vascularity: Unremarkable. Heart/mediastinum: Cardiomediastinal silhouette is unremarkable. Atherosclerotic calcifications are seen in the aorta. Musculoskeletal: No acute osseous pathology. IMPRESSION: No acute cardiopulmonary disease/process. [facility], , 09/24/2024 1:38 PM
--- NOTE | 2024-09-24 14:24 | CT ---
EXAMINATION TYPE: CT brain wo con DATE OF EXAM: 09/24/2024 COMPARISON: None CLINICAL INDICATION: Male, 73 years old with history of syncope; PHH, syncope CT DLP: 1096.4 mGycm Automated exposure control for dose reduction was used. Findings: The ventricles, basal cisterns and sulci over the convexities are within normal limits and there is n o mass effect or shift of midline structures. There is mild decreased density in the periventricular white matter consistent with mild chronic isch emic white matter demyelination. There is no acute intra or extra-axial hemorrhage. The posterior fossa including the brainstem, fourth ventricle and cerebellar pontine angles appear no rmal. Intraorbital contents appear normal and symmetric. Visualized paranasal sinuses and mastoid air cells are well aerated. The calvarium is intact. IMPRESSION: 1. No acute bleed or mass effect. 2. Mild senescent changes. [facility], Workstation: [facility], 09/24/2024 2:21 PM
[2024-09-24] MEDS: LACTATED RINGERS 1,000 ML IV ONE (14:52)
[2024-09-24 14:59] LABS: Basophils % (A) 0 %; Eosinophils # (A) 0.1 k/uL (0-0.7); Eosinophils % (A) 1 %; HCT 21.9 % (39.0-53.0); Lymphocytes # (A) 0.7 k/uL (1.0-4.8); Lymphocytes % (A) 7 %; MCH 30.8 pg (25.0-35.0); MCHC 33.7 g/dL (31.0-37.0); MCV 91.5 fL (80.0-100.0); Mean Platelet Volume 8.6; Monocytes # (A) 0.8 k/uL (0-1.0); Monocytes % (A) 7 %; Neutrophils # (A) 9.4 k/uL (1.3-7.7); Neutrophils % (A) 85 %; Platelet Count 157 k/uL (150-450); RBC 2.39 m/uL (4.30-5.90); RDW 14.7 % (11.5-15.5); WBC 11.1 k/uL (3.8-10.6)
[2024-09-24 15:09] LABS: AST 22 U/L (17-59); African American GFR (CKD) 41 (>60 ml/min/1.73 sqM); Albumin 2.2 g/dL (3.5-5.0); Alkaline Phosphatase 38 U/L (38-126); Anion Gap 10 mmol/L; Blood Urea Nitrogen 37 mg/dL (9-20); Carbon Dioxide 18 mmol/L (22-30); Chloride 105 mmol/L (98-107); Glucose 152 mg/dL (74-99); Non-African American GFR(CKD) 35 (>60 ml/min/1.73 sqM); Potassium 5.1 mmol/L (3.5-5.1); Sodium 133 mmol/L (137-145); Total Bilirubin 0.7 mg/dL (0.2-1.3); Total Protein 4.2 g/dL (6.3-8.2)
[2024-09-24 15:13] LABS: HGB 7.4 gm/dL (13.0-17.5)
[2024-09-24 15:19] LABS: ALT 31 U/L (4-49)
[2024-09-24 15:22] LABS: Appearance,Urine Clear (Clear); Bilirubin,Urine Negative (Negative); Blood,Urine Negative (Negative); Color,Urine Yellow; Glucose,Urine (UA) Negative (Negative); Ketones,Urine Negative (Negative); Leukocyte Esterase,Urine Negative (Negative); Nitrite,Urine Negative (Negative); PH, Urine 6.5 (5.0-8.0); Protein,Urine Trace (Negative); Urobilinogen,Urine <2.0 mg/dL (<2.0)
[2024-09-24] MEDS: NOREPINEPHRINE 4 MG in SODIUM CHLORIDE 0.9% 250 ML IV ONE (15:54)
[2024-09-24 16:55] LABS: ABG Base Excess -4.9 mmol/L; ABG HCO3 20 mmol/L (21-25); ABG Oxygen Saturation 87.5 % (94-97); ABG PCO2 34 mmHg (35-45); ABG PH 7.37 (7.35-7.45); ABG TCO2 21 mmol/L (19-24); Allen Test Performed? Yes
[2024-09-24 16:56] LABS: ABG PO2 56 mmHg (83-108)
[2024-09-24] MEDS ORDERED: PROPOFOL 10 MG/ML 20 ML VIAL IV ONE (16:57)
[2024-09-24] MEDS ORDERED: EPINEPHrine 10 ML SYRINGE (0.1 MG/ML) ONE (16:57)
[2024-09-24] MEDS: MIDAZOLAM 1 MG/ML 5 ML VIAL IV STA (16:59)
[2024-09-24] MEDS: NOREPINEPHRINE 32 MG in SODIUM CHLORIDE 0.9% 218 ML IV ONE (17:35)
--- NOTE | 2024-09-24 17:35 | P.CNPUL ---
History of Present Illness Consult date: 09/24/24 Chief complaint: Hypotension, PEA cardiac arrest History of present illness: 73-year-old male patient, seen in emergency department because of hypotension and ongoing tachycardia. The patient was cold and clammy. The patient was in 100% of the with a facemask. He was hypotensive and norepinephrine was running at 0.09 mcg/kg/min. The patient has already received 1 L of LR and 1 L of normal saline and lactated Ringer was running at a rate of 130 cc an hour. Urine output was only 120 cc collecting in the bag. I noted drop in hemoglobin from a baseline of 10.6 down to 7.4. The patient also had an acute kidney injury with a creatinine of 1.8 with a BUN of 37. He did have a non-anion gap metabolic acidosis with a serum bicarb of 18. Initial lactic acid level was 7.8 at time of admission, dropped down to 1.9. He was on 100% nonrebreather facemask. Initial chest x-ray showed no acute cardiopulmonary process. CAT scan of the brain was negative for any acute abnormalities. He was complaining of some abdominal discomfort in the lower abdominal area and pelvic area. The patient has history of hypertension hyperlipidemia and infrarenal abdominal aortic aneurysm measuring 6.5 cm in size. The patient was seen by cardiology fo r dizziness and lightheadedness. He apparently had a fall at home without any significant injuries. Denies having any fever or chills. During my evaluation, the patient went into a PEA cardiac arrest. He received CPR briefly. The CPR was for less than 1 minute. There was return of pulse following that. I intubated the patient and placed him on mechanical ventilator. His subsequent vitals showed a blood pressure of 82/64. Remains tachycardic at rate of 135. Remains on pressors. No previous echocardiogram. Previous cardiac status is unknown. Patient is obese with a body mass index of 36.6. Review of Systems ROS unobtainable: due to endotracheal tube Past Medical History Past Medical History: Hypertension Additional Past Medical History / Comment(s): Hyperlipidemia, obesity, abdominal aortic aneurysm, infra renal abdominal aneurysm measuring 6.5 cm in size with eccentric mural thrombus. 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 History of Any Multi-Drug Resistant Organisms: None Reported Past Surgical History: Appendectomy Past Anesthesia/Blood Transfusion Reactions: No Reported Reaction Smoking Status: Former smoker Medications and Allergies Home Medications Medication Instructions Recorded Confirmed Type Citalopram Hydrobromide [CeleXA] 20 mg PO DAILY 04/15/24 09/24/24 History Rosuvastatin [Crestor] 20 mg PO DAILY 04/15/24 09/24/24 History Tamsulosin [Flomax] 0.8 mg PO DAILY 04/15/24 09/24/24 History amLODIPine [Norvasc] 5 mg PO DAILY 04/15/24 09/24/24 History lisinopriL [Zestril] 20 mg PO DAILY 04/15/24 09/24/24 History Pantoprazole [Protonix] 40 mg PO AC-BID 30 Days #60 tab 04/18/24 09/24/24 Rx Allergies Allergy/AdvReac Type Severity Reaction Status Date / Time No Known Allergies Allergy Verified 09/24/24 09:32 Physical Exam Vitals: Vital Signs Temp Pulse Resp BP Pulse Ox 09/24/24 16:15 135 H 30 H 82/64 93 L 09/24/24 16:08 72/50 09/24/24 16:04 135 H 30 H 72/56 96 09/24/24 15:54 137 H 33 H 70/46 100 09/24/24 15:11 133 H 20 89/50 99 09/24/24 14:54 98.1 F 09/24/24 14:53 125 H 31 H 71/55 100 09/24/24 14:30 128 H 30 H 64/44 92 L 09/24/24 13:29 154 H 36 H 115/79 94 L 09/24/24 13:00 34 L 16 82/47 09/24/24 11:00 134 H 20 96 09/24/24 09:38 132 H 20 110/76 96 09/24/24 07:03 98.2 F 124 H 18 116/75 97 09/24/24 04:28 134 H 18 113/79 99 09/24/24 00:56 117 H 24 99/66 98 09/24/24 00:04 97.4 F L 123 H 18 78/49 97 Intake and Output 09/24/24 09/24/24 09/24/24 06:59 14:59 22:59 Intake Total 3.435 Balance 3.435 Intake: Intake, IV Titration 3.435 Amount Norepinephrine 4 mg In 3.435 Sodium Chloride 0.9% 250 ml @ 0.03 MCG/KG/MIN 11. 665 mls/hr IV .[id number] ONE Rx#:[id number] Other: Weight 102.058 kg The patient is pale, intubated on mechanical ventilator, orogastric and orotracheal tube are both in place. Head exam is unremarkable. No scleral icterus or corneal arcus noted. Neck is without jugular venous distension, thyromegaly, or carotid bruits. Carotid upstrokes are brisk bilaterally. Lungs are diminished breath sound bilaterally along with scattered expiratory wheezes throughout the lung ibrahim Cardiac exam reveals the PMI to be normally sized and situated. The patient is tachycardic and the patient remains in sinus tachycardia with a heart rate around 1 30-1 0. No murmurs, rubs or gallops. Abdominal exam reveals normal bowel sounds, no masses, no organomegaly and no aortic enlargement. No pulsating masses. Diminished pulses in the femorals in the lower extremities bilaterally. Extremities are nonedematous and the patient has cold and clammy lower extremities bilaterally. Pulses in the upper extremities are also very thready and weak. Examination of the skin revealed no evidence of significant rashes, suspicious appearing nevi or other concerning lesions. Neurologically, the patient is intubated on mechanical ventilator. Results - Laboratory Findings CBC and BMP: 09/24/24 14:46 09/24/24 14:46 ABG ABG pH 7.37 (7.35-7.45) 09/24/24 16:51 ABG pCO2 34 mmHg (35-45) L 09/24/24 16:51 ABG pO2 56 mmHg (83-108) L* 09/24/24 16:51 ABG O2 Saturation 87.5 % (94-97) L 09/24/24 16:51 PT/INR, D-dimer PT 12.0 sec (10.0-12.5) 09/24/24 00:10 INR 1.1 (<1.2) 09/24/24 00:10 Abnormal lab findings: Abnormal Labs 09/24/24 09/24/24 09/24/24 00:06 00:10 00:10 WBC 14.3 H RBC 3.42 L Hgb 10.6 L Hct 31.8 L Neutrophils # 11.9 H Lymphocytes # ABG pCO2 ABG pO2 ABG HCO3 ABG O2 Saturation Hemoglobin Sodium Carbon Dioxide 15 L BUN 27 H Creatinine 1.38 H Glucose 274 H POC Glucose (mg/dL) 295 H Hemoglobin A1c Plasma Lactic Acid Joe Calcium 7.2 L Phosphorus 4.7 H Total Protein 5.1 L Albumin 2.8 L Urine Protein 09/24/24 09/24/24 09/24/24 00:10 00:10 03:46 WBC RBC Hgb Hct Neutrophils # Lymphocytes # ABG pCO2 ABG pO2 ABG HCO3 ABG O2 Saturation Hemoglobin Sodium Carbon Dioxide BUN Creatinine Glucose POC Glucose (mg/dL) Hemoglobin A1c 6.2 H Plasma Lactic Acid Joe 7.8 H* 4.2 H* Calcium Phosphorus Total Protein Albumin Urine Protein 09/24/24 09/24/24 09/24/24 05:44 07:51 12:59 WBC RBC Hgb Hct Neutrophils # Lymphocytes # ABG pCO2 ABG pO2 ABG HCO3 ABG O2 Saturation Hemoglobin Sodium Carbon Dioxide BUN Creatinine Glucose POC Glucose (mg/dL) 135 H 208 H Hemoglobin A1c Plasma Lactic Acid Joe 2.6 H* Calcium Phosphorus Total Protein Albumin Urine Protein 09/24/24 09/24/24 09/24/24 14:46 14:46 15:13 WBC 11.1 H RBC 2.39 L Hgb 7.4 L D Hct 21.9 L Neutrophils # 9.4 H Lymphocytes # 0.7 L ABG pCO2 ABG pO2 ABG HCO3 ABG O2 Saturation Hemoglobin Sodium 133 L Carbon Dioxide 18 L BUN 37 H Creatinine 1.86 H Glucose 152 H POC Glucose (mg/dL) Hemoglobin A1c Plasma Lactic Acid Joe Calcium 7.0 L Phosphorus Total Protein 4.2 L Albumin 2.2 L Urine Protein Trace H 09/24/24 16:51 WBC RBC Hgb Hct Neutrophils # Lymphocytes # ABG pCO2 34 L ABG pO2 56 L* ABG HCO3 20 L ABG O2 Saturation 87.5 L Hemoglobin 9.1 L Sodium Carbon Dioxide BUN Creatinine Glucose POC Glucose (mg/dL) Hemoglobin A1c Plasma Lactic Acid Joe Calcium Phosphorus Total Protein Albumin Urine Protein - Diagnostic Findings Chest x-ray: image reviewed Assessment and Plan Plan: Shock, under investigation. Consider dissecting abdominal aortic aneurysm. Consider acute pulmonary embolism. The patient is known to have a 6.5 cm abdominal aortic aneurysm with a eccentric thrombus. The patient had a acute drop in hemoglobin by at least 3 g in addition to significant hemodynamic instability, sinus tachycardia, hypotension and a PEA cardiac arrest. The patient was resuscitated. The patient was intubated placed on mechanical ventilator and the patient is currently on pressors and IV fluids. Possibility of pulmonary embolism cannot be completely ruled out. The patient will need a CT of the thoracic and abdominal aorta. Acute hypoxic respiratory failure, currently intubated on mechanical ventilator Sinus tachycardia, related to his underlying shock Acute lactic acidosis Acute kidney injury, currently oliguric Acute drop in hemoglobin, under investigation. Rule out dissecting abdominal aortic aneurysm. Abdominal aortic aneurysm, infrarenal measuring 6.5 cm in size with an eccentric thrombus Morbid obesity with a BMI of 36.3 Colonic diverticulosis Hypertension Hyperlipidemia Plan The patient was seen in the emergency department. I was involved in the resuscitation efforts. I intubated the patient and currently is on mechanical ventilator. Will do necessary ventilator changes. Obtain a follow-up blood gases. The patient will need a CT of the thoracic abdominal aorta. Possibility of pulm embolism cannot be completely ruled out. The patient will be receiving 2 units of packed RBCs. Sedation with propofol Pressors with norepinephrine and a dose to be titrated to maintain a mean arterial pressure above 60 Continue lactated Ringer at rate of 200 cc an hour This is a work in progress. Condition is critical. Carries a very high mortality and his outcome on large depends on further diagnostic testing that is pending for now. Will likely need ICU transfer if he survives as the patient carries a very high mortality. Will continue to follow. Was done more than 45 minutes. This is working progress. Time with Patient: Greater than 30
--- NOTE | 2024-09-24 17:36 | P.PCN ---
Date of Procedure: 09/24/24 Preoperative Diagnosis: Acute hypoxic respiratory failure Postoperative Diagnosis: Same Procedure(s) Performed: Intubation Surgeon: Mil Anderson Estimated Blood Loss (ml): 0 Pathology: none sent Condition: critical Disposition: ICU Operative Findings: Indication: Respiratory compromise. A time-out was completed verifying correct patient, procedure, site, positioning, and implant(s) or special equipment if applicable. The patient was positioned appropriately and a # 8 endotracheal tube was placed under direct laryngoscopy. The tube was anchored at 22 cm at the teeth. Correct placement was confirmed by presence of bilateral breath sounds without air sounds in the abdomen on auscultation. An end-tidal CO2 monitor was also used to confirm tracheal placement of the ET tube. A chest x-ray was ordered to assess for pneumothorax and verify endotracheal tube placement. The patient tolerated the procedure well and there were no complications.
[2024-09-24 17:56] LABS: ABG Base Excess -9.2 mmol/L; ABG HCO3 17 mmol/L (21-25); ABG Oxygen Saturation 92.5 % (94-97); ABG PCO2 40 mmHg (35-45); ABG PH 7.25 (7.35-7.45); ABG PO2 72 mmHg (83-108); ABG TCO2 19 mmol/L (19-24)
[2024-09-24 17:58] LABS: Allen Test Performed? no
--- NOTE | 2024-09-24 18:28 | P.EN ---
Patient had multiple rapid responses throughout the day, was called for CODE BLUE at around 5 PM. On arrival at bedside, patient had already been successfully resuscitated with 1 round of CPR and 1 of epi. Reportedly, patient has history of AAA up to 7 cm. Was supposed to get surgery outpatient. Patient was intubated by health it specialist, started on pressors. Had 3 g drop in his hemoglobin concerning for AAA rupture, massive transfusion protocol initiated. During this time patient also had another PEA, with 1 round of epi and CPR before achieving ROSC. Trauma surgery at bedside to place a line and central line. Vascular surgery was contacted, patient too unstable to go to CT. ER attending did bedside ultrasound with likely finding of possible retroperitoneal bleed as bilateral kidneys were not visible. Family was called, brother Eder decided to pursue comfort care. A total of 60 minutes of critical care services provided.
[2024-09-24] MEDS: MORPHINE SULFATE 4 MG/ML SYRINGE IV PRN (18:34)
[2024-09-24] MEDS: methylPREDNISolone SOD SUCCI 125 MG/2 ML VIAL IV SCH (18:56)
[2024-09-25] MEDS: IPRATROPIUM-ALBUTEROL 3 ML NEB INHALATION SCH (02:53)
[2024-09-25] MEDS: MORPHINE SULFATE 4 MG/ML SYRINGE IV PRN (07:51)
[2024-09-25 08:56] VITALS: BP 99/54; PULSE 110
[2024-09-25] MEDS ORDERED: PANTOPRAZOLE 40 MG TABLET PO SCH (09:00)
[2024-09-25] MEDS: MORPHINE SULFATE 100 MG in SODIUM CHLORIDE 0.9% 90 ML IV SCH (09:58)
[2024-09-25] MEDS: GLYCOPYRROLATE 0.2 MG/ML 2 ML VIAL IVP PRN (10:07)
[2024-09-25] MEDS: LORazepam 2 MG/ML INJ IV PRN (10:08)
[2024-09-25] MEDS: ATROPINE OPHTH SOLN 1% 5ML BTL SUBLINGUAL PRN (15:49)
[2024-09-25] MEDS: ACETAMINOPHEN SUPPOSITORY 650 MG SUPP RECTAL PRN (21:48)
[2024-09-26 00:24] VITALS: RESP 18
[2024-09-26 01:36] VITALS: TEMP 100.7
== END 2024-09-26 05:09 | disposition expired | DRG 299 ==
LOC: EC → 3SCARD 02:03 → 2SICU 15:27 → 4SSUR 19:43
PROVIDERS: ADMIT Family Medicine; ATTEND Family Medicine
PROC: 02HV33Z Insertion of Infusion Device into Superior Vena Cava, Percutaneous Approach (ICD-10-PCS; principal; 2024-09-24)
PROC: 0BH17EZ Insertion of Endotracheal Airway into Trachea, Via Natural or Artificial Opening (ICD-10-PCS; 2024-09-24)
PROC: 3E043XZ Introduction of Vasopressor into Central Vein, Percutaneous Approach (ICD-10-PCS; 2024-09-24)
PROC: 03HY32Z Insertion of Monitoring Device into Upper Artery, Percutaneous Approach (ICD-10-PCS; 2024-09-24)
PROC: 4A133B1 Monitoring of Arterial Pressure, Peripheral, Percutaneous Approach (ICD-10-PCS; 2024-09-24)
PROC: 4A133J1 Monitoring of Arterial Pulse, Peripheral, Percutaneous Approach (ICD-10-PCS; 2024-09-24)
PROC: 5A1935Z Respiratory Ventilation, Less than 24 Consecutive Hours (ICD-10-PCS; 2024-09-24)
DX: I71.33 Infrarenal abdominal aortic aneurysm, ruptured (principal); J96.01 Acute respiratory failure with hypoxia; R57.9 Shock, unspecified; E66.9 Obesity, unspecified; I10 Essential (primary) hypertension; E87.20 Acidosis, unspecified; N17.9 Acute kidney failure, unspecified; I46.2 Cardiac arrest due to underlying cardiac condition; Z51.5 Encounter for palliative care; Z66 Do not resuscitate; Z68.36 Body mass index [BMI] 36.0-36.9, adult; E78.00 Pure hypercholesterolemia, unspecified; W19.XXXA Unspecified fall, initial encounter; Y92.009 Unspecified place in unspecified non-institutional (private) residence as the place of occurrence of the external cause; Z79.899 Other long term (current) drug therapy; Z87.891 Personal history of nicotine dependence
CPT/HCPCS: 36415; 36430; 36600; 70450; 71045; 80053; 81003; 82805; 83036; 83605; 83735; 83880; 84100; 84443; 84484; 85025; 85610; 85730; 86850; 86900; 86901; 86920; 87040; 87636; 92950; 93005; 93880; 94002; 96361; 96365; 96366; 96367; 96375; 96376; 99291